=== PATIENT | female | born 1955 | race Caucasian/White ===

== ENCOUNTER 2016-09-15 23:56 | Inpatient (IN) | payer MEDICARE, OTHER ==
[~2016-09-15] VITALS: Ht 157.5 cm; Wt 114.8 kg
[~2016-09-15 23:56] MED LIST: ATOR40TA59 PO; BUDE0.5A IH; CELE200C PO; DILT180C29 PO; FENT1PAT15 TD; FLUO20CA8 PO; FURO20TA3 PO; HYDR-2666 PO; HYDR50TA6 PO; INSU100C4 SQ; INSU100I11 SQ; INSU100V13 SQ; IPRA3AMP IH; LEVO500T38 PO; LISI-338 PO; LISI10TA2 PO; METF10002 PO; METH500T7 PO; METO10TA81 PO; MONT10TA6 PO; MORP15TA3 PO; MORP30TA PO; PANT40TA5 PO; PARO30TA2 PO; PRED20TA PO; PREG75CA PO; PROAIR HFA8.5 GM IH; PROM25TA10 PO; SITA100T PO; TIOT18CA IH; TIZA4TAB PO; TRAM50TA PO; ZOLP10TA PO
[2016-09-16] VITALS (37 sets, daily range): BP systolic 110–221; BP diastolic 50–94
[2016-09-16 03:09] LABS: HCO3 ABG 28 mmol/L (21-28); PCO2 ABG 59 mmHg (35-46); PO2 ABG 77 mmHg (65-108); SAT O2 ABG 94 % (92-99)
[2016-09-16 03:44] LABS: FIO2 ABG 35; PH ABG 7.29 (7.35-7.45)
[2016-09-16 05:02] LABS: HEMATOCRIT 35.6 % (36.0-47.0); HEMOGLOBIN 10.9 g/dL (12.0-15.5); RED BLOOD COUNT 4.71 x10^6/uL (3.50-5.40); RED CELL DISTRIBUTION WIDTH 19.9 % (11.5-14.5); WHITE BLOOD COUNT 10.1 x10^3/uL (4.0-11.0)
[2016-09-16 06:05] LABS: CALCIUM 7.8 mg/dL (8.5-10.1); CREATININE 2.9 mg/dL (0.6-1.0); GFR 16.6; MAGNESIUM 1.4 mg/dL (1.8-2.4); PHOSPHORUS 8.2 mg/dL (2.6-4.7); POTASSIUM 5.6 mmol/L (3.5-5.1)
--- NOTE | 2016-09-16 08:24 | RAD ---
Portable chest, 09/16/2016: History: Shortness of breath Comparison is made to a study from 03/04/2016. The heart is mildly enlarged. The pulmonary vascularity is at the upper limits of normal. No pulmonary infiltrate is seen. There is no evidence of pleural fluid. IMPRESSION: 1. Mild cardiomegaly. 2. No acute abnormality is detected.
[2016-09-16 08:34] LABS: HCO3 ABG 32 mmol/L (21-28); PH ABG 7.29 (7.35-7.45); PO2 ABG 99 mmHg (65-108); SAT O2 ABG 97 % (92-99)
[2016-09-16] MEDS ORDERED: hydrALAZINE 20 MG/ML VIAL. IVP PRN (09:00)
[2016-09-16] MEDS ORDERED: ALBUTEROL SULFATE 2.5 MG/3 ML NEBU. NEB PRN (09:00)
[2016-09-16] MEDS ORDERED: ONDANSETRON PF 4 MG/2 ML VIAL. IV PRN (09:00)
--- NOTE | 2016-09-16 09:11 | PDOC1 ---
History and Physical Past Medical History Past Medical History PAST MEDICAL HISTORY: Diabetes mellitus, hypertension, COPD, chronic kidney disease - severity unclear, chronic pain. ALLERGIES: PENTAZOCINE. MEDICATIONS: Reviewed. FAMILY HISTORY: Noncontributory. SOCIAL HISTORY: Nmd-ggir-krf day tobacco use, supplemental oxygen dependence of 2-1/2 liters at rest. No alcohol use. Cardiovascular: HTN Pulmonary: COPD Renal/: Chronic renal insuff, Acute renal failure, Chronic renal failure Endocrine: Diabetes Past Surgical History Past Surgical History: No pertinent history Family History Family History: Family History Unknown Social History ALCOHOL: none Drugs: None Current Medications Current Medications Current Medications Medications (Trade) Dose Ordered Sig/Natalie Start Time Stop Time Status Last Admin Dose Admin Acetaminophen (Tylenol) 325 mg PRN Q6HRS PRN 09/16/16 09:00 Acetaminophen/ Hydrocodone Bitart (Lortab 5/325) 1 tab PRN Q6HRS PRN 09/16/16 09:00 Albuterol Sulfate (Ventolin Neb Soln) 2.5 mg PRN Q4HRS PRN 09/16/16 09:00 Hydralazine HCl (Apresoline) 10 mg PRN Q4HRS PRN 09/16/16 09:00 Ondansetron HCl (Zofran) 4 mg PRN Q8HRS PRN 09/16/16 09:00 Allergies Allergies Allergies Coded Allergies Type Severity Reaction Last Updated Verified pentazocine Allergy Intermediate 10/29/14 Yes I S O L A T I O N *CONTACT* Allergy Unknown 06/11/15 Yes ROS Review of System not able to obtain due to severity of her condition. Physical Exam Physical Exam GEN.: No apparent distress. Alert, confused. obese HEENT: Head is normocephalic, atraumatic NECK: Supple. no jvd LUNGS: Clear to auscultation. HEART: RRR, S1, S2 present. Peripheral pulses intact ABDOMEN: Soft, nontender. Positive bowel sounds. EXTREMITIES: Without any cyanosis. NEUROLOGIC: Normal speech, normal tone PSYCHIATRIC: Normal affect, normal mood. SKIN: No visible ulcerations Vitals Vitals Vital Signs Date Time Temp Pulse Resp B/P Pulse Ox O2 Delivery O2 Flow Rate FiO2 09/16/16 08:19 97 BiPAP/CPAP 09/16/16 06:08 81 24 140/68 09/16/16 04:00 99.2 99.2 Labs Labs Laboratory Tests Test 09/16/16 03:08 09/16/16 04:37 O2 Saturation 94% (92-99) Arterial Blood pH 7.29 (7.35-7.45) Arterial Blood pCO2 at Patient Temp 59mmHg (35-46) Arterial Blood pO2 at Patient Temp 77mmHg (65-108) Arterial Blood HCO3 28mmol/L (21-28) Arterial Blood Base Excess 0mmol/L (-3-3) FiO2 35 White Blood Count 10.1x10^3/uL (4.0-11.0) Red Blood Count 4.71x10^6/uL (3.50-5.40) Hemoglobin 10.9g/dL (12.0-15.5) Hematocrit 35.6% (36.0-47.0) Mean Corpuscular Volume 76fL (79-100) Mean Corpuscular Hemoglobin 23pg (25-35) Mean Corpuscular Hemoglobin Concent 31g/dL (31-37) Red Cell Distribution Width 19.9% (11.5-14.5) Platelet Count 322x10^3/uL (140-400) Sodium Level 138mmol/L (136-145) Potassium Level 5.6mmol/L (3.5-5.1) Chloride Level 98mmol/L (98-107) Carbon Dioxide Level 31mmol/L (21-32) Anion Gap 9 (6-14) Blood Urea Nitrogen 59mg/dL (7-20) Creatinine 2.9mg/dL (0.6-1.0) Estimated GFR (Cockcroft-Gault) 16.6 Glucose Level 129mg/dL (70-99) Calcium Level 7.8mg/dL (8.5-10.1) Phosphorus Level 8.2mg/dL (2.6-4.7) Magnesium Level 1.4mg/dL (1.8-2.4) Laboratory Tests Test 09/16/16 03:08 09/16/16 04:37 O2 Saturation 94% (92-99) Arterial Blood pH 7.29 (7.35-7.45) Arterial Blood pCO2 at Patient Temp 59mmHg (35-46) Arterial Blood pO2 at Patient Temp 77mmHg (65-108) Arterial Blood HCO3 28mmol/L (21-28) Arterial Blood Base Excess 0mmol/L (-3-3) FiO2 35 White Blood Count 10.1x10^3/uL (4.0-11.0) Red Blood Count 4.71x10^6/uL (3.50-5.40) Hemoglobin 10.9g/dL (12.0-15.5) Hematocrit 35.6% (36.0-47.0) Mean Corpuscular Volume 76fL (79-100) Mean Corpuscular Hemoglobin 23pg (25-35) Mean Corpuscular Hemoglobin Concent 31g/dL (31-37) Red Cell Distribution Width 19.9% (11.5-14.5) Platelet Count 322x10^3/uL (140-400) Sodium Level 138mmol/L (136-145) Potassium Level 5.6mmol/L (3.5-5.1) Chloride Level 98mmol/L (98-107) Carbon Dioxide Level 31mmol/L (21-32) Anion Gap 9 (6-14) Blood Urea Nitrogen 59mg/dL (7-20) Creatinine 2.9mg/dL (0.6-1.0) Estimated GFR (Cockcroft-Gault) 16.6 Glucose Level 129mg/dL (70-99) Calcium Level 7.8mg/dL (8.5-10.1) Phosphorus Level 8.2mg/dL (2.6-4.7) Magnesium Level 1.4mg/dL (1.8-2.4) VTE Prophylaxis Ordered VTE Prophylaxis Devices: Yes VTE Pharmacological Prophylaxi: Yes JACKIE CHAMBERLAIN MD Sep 16, 2016 09:11
[2016-09-16] MEDS ORDERED: DEXTROSE 50% 25 GM / 50ML DISP.SYRIN. IV PRN (09:15)
[2016-09-16 09:48] LABS: FIO2 ABG 40; PCO2 ABG 69 mmHg (35-46)
--- NOTE | 2016-09-16 10:00 | PDOC ---
Provider Note Provider Note dictated RAMBO RODRIGUEZ MD Sep 16, 2016 10:00
--- NOTE | 2016-09-16 10:03 | HP ---
ADMIT DATE: 09/16/2016 CHIEF COMPLAINT: Altered mental status. HISTORY OF PRESENT ILLNESS: A 60-year-old female patient with several comorbid conditions, brought to [place] ER by for altered mental status. Reportedly, the patient was in altered mental status for last couple of days. Exact period unknown (brought to [facility]). She was diagnosed with hypercapnic respiratory acidosis and hyperkalemia. She has been transferred to [facility] for further evaluation by Cardiology. I did review her laboratory findings from [place] and the patient had respiratory acidosis and mild hyperkalemia. Most of the history obtained from the chart and RN. The patient is currently on BiPAP and not able to provide good history; however, she is alert, responding to questions, but unable to talk due to her BiPAP. ROS and Physical exam: Please see my [facility] DATA: From [place], WBC is 13.9, hemoglobin is 11.8, MCV is 76, platelets 369. INR is 1.1. Urinalysis, ____ showed mild yeast positive. Rest of the UA appears negative. CMP: Glucose is 111, BUN is 57, creatinine is 3.6, total bilirubin is 0.4, AST 18, ALT is 19. Sodium is 132, potassium 6.9. CKMB 3.6 and GFR is 12.9, anion gap is 3.8, troponin 0.019. Lactic acid 0.7. Ammonia 19. pH is 7.24, pCO2 67. IMAGING STUDY: EKG personally reviewed, normal sinus rhythm, no acute ST-T wave changes seen. ASSESSMENT: 1. Altered mental status due to respiratory acidosis, hypercapnic/ hypoxic respiratory failure. 2. Morbid obesity. 3. Renal failure, unknown baseline creatinine. 4. Mild leukocytosis. 5. Hyperkalemia. 6. DM 7. HX CHF PLAN: 1. The patient is currently on BiPAP. Repeat ABG showed some improvement. Also, mentation is improving. 2. Pulmonology has been consulted. I will start her on IV Solu-Medrol and continue periodic nebulizations. 3. I will try to obtain her medications from pharmacy. 4. Nephrology has been consulted. 5. Sliding scale insulin. 6. IV Solu-Medrol t.i.d. 7. Limit narcotics. 8. CBC, CMP in a.m. PROGNOSIS: Guarded. JACKIE CHAMBERLAIN MD DR: CHON/brittney JOB#: [id number] / [id number] CAITIE
--- NOTE | 2016-09-16 11:00 | CONS ---
DATE OF CONSULTATION: ATTENDING PHYSICIAN: Dr. Krista Strong. REASON FOR CONSULTATION: Respiratory failure. HISTORY OF PRESENT ILLNESS: The patient is a 60-year-old female who is morbidly obese and probably has sleep apnea. The patient has been a smoker, 2 packs per day. She was initially seen at [facility] for increasing confusion and abnormal arterial blood gases. The patient was transferred to [facility] for further evaluation. Her arterial blood gases on arrival showed a pH of 7.29, pCO2 of 59, pO2 77 on 35% FiO2. She is awake, following commands. She is on chronic narcotics at home including hydrocodone, morphine and Duragesic patch. Her chest x-ray showed slightly prominent vascular markings and cardiomegaly. She was placed on BiPAP, but then she started having some vomitus and then I just gave the order to take her off the BiPAP. Consultation requested for further evaluation and management. PAST MEDICAL HISTORY: Significant for history of COPD, history of obesity, hypoventilation syndrome, diabetes, hypertension and chronic kidney disease. ALLERGIES: PENTAZOCINE. MEDICATIONS: Reviewed as listed in the MRAD and home medications were reviewed as well. SOCIAL HISTORY: Smoked, 2 packs per day. Chronically on oxygen 2.5 liters at rest. REVIEW OF SYSTEMS: Twelve-point system obtained. Pertinent positives discussed in my history of present illness, otherwise noncontributory. All systems that were negative were reviewed as well. PHYSICAL EXAMINATION: GENERAL: She is awake. She wants the BiPAP off. VITAL SIGNS: Blood pressure ____, pulse ox 97% on current BiPAP settings. HEENT: Sclerae nonicteric. NECK: Supple. LUNGS: Diminished breath sounds. CARDIOVASCULAR: Regular rate ABDOMEN: Soft, obese. EXTREMITIES: With no pitting edema. LABORATORY DATA: Reviewed. ABGs discussed in my history of present illness. BUN 59, creatinine 2.9, magnesium 1.4. White cell count 10.1, hemoglobin 10.9, platelets are 322. IMPRESSION: 1. Acute on chronic hypercapnic respiratory failure, most likely contributed by multiple narcotics and possible acute on chronic cor pulmonale. Cannot exclude bronchitis. She takes hydrocodone, morphine and Duragesic patch at home. 2. History of chronic obstructive pulmonary disease with mild exacerbation. 3. History of obesity, hypoventilation syndrome and possible obstructive sleep apnea. 4. History of chronic respiratory failure on 2.5 liters at home. RECOMMENDATIONS: 1. Since the patient has had some emesis, probably caused by narcotics, I will recommend discontinuing the BiPAP and place her on nasal cannula. We will keep the pO2 in the high 50s and repeat ABGs. Clinically, she does not show any signs of CO2 narcosis at present. 2. I would recommend not giving her any home narcotics. 3. Bronchodilators. 4. IV steroids with taper. 5. Follow renal function. 6. P.r.n. diuresis if renal function stabilizes. 7. Discussed with RN and RT. cct 39 min RAMBO RODRIGUEZ MD DR: GENARO/brittney JOB#: [id number] / [id number] CAITIE
[2016-09-16] MEDS: methylPREDNISolone SOD SUCC PF 40 MG/ML VIAL. IV SCH ×3 (11:09→21:36)
[2016-09-16] MEDS: INSULIN ASPART 300 UNITS/3 ML INSULN.PEN SQ SCH ×3 (11:57→21:42)
[2016-09-16] MEDS: IPRATRPIUM/ALBUTEROL 0.5/2.5MG 3 ML NEBU. NEB SCH ×3 (12:17→20:33)
[2016-09-16 12:25] LABS: HCO3 ABG 33 mmol/L (21-28); PH ABG 7.32 (7.35-7.45); PO2 ABG 72 mmHg (65-108); SAT O2 ABG 93 % (92-99)
[2016-09-16 12:27] LABS: FIO2 ABG 30; PCO2 ABG 66 mmHg (35-46)
[2016-09-16] MEDS: HYDROCODONE/APAP 5/325MG TABLET. PO PRN ×2 (16:15→21:59)
[2016-09-16] MEDS: LISINOPRIL 5 MG TABLET. PO SCH (19:53)
[2016-09-16] MEDS: TRAMADOL 50 MG TABLET. PO PRN (19:54)
[2016-09-16] MEDS: DILTIAZEM HCL 180 MG CAP.ER.24H PO SCH (19:55)
[2016-09-16] MEDS: hydrALAZINE 20 MG/ML VIAL. IVP PRN (21:25)
[2016-09-16] MEDS ORDERED: ALPRAZOLAM 0.5 MG TABLET PO ONE (21:30)
[2016-09-16] MEDS: NICARDIPINE HCL 50 MG in IV NORMAL SALINE 250ML 250 ML IV PRN (22:16)
[2016-09-17] VITALS (15 sets, daily range): BP systolic 121–179; BP diastolic 52–86
[2016-09-17] MEDS: TRAMADOL 50 MG TABLET. PO PRN ×3 (01:34→15:30)
[2016-09-17] MEDS: HYDROCODONE/APAP 5/325MG TABLET. PO PRN (03:58)
[2016-09-17] MEDS: hydrALAZINE 20 MG/ML VIAL. IVP PRN (05:39)
[2016-09-17] MEDS: ACETAMINOPHEN 325 MG TABLET. PO PRN ×2 (05:40→21:53)
[2016-09-17] MEDS: methylPREDNISolone SOD SUCC PF 40 MG/ML VIAL. IV SCH ×3 (05:42→21:19)
[2016-09-17] MEDS: NICARDIPINE HCL 50 MG in IV NORMAL SALINE 250ML 250 ML IV PRN (05:48)
[2016-09-17 06:19] LABS: BASO % 0 % (0-3); EOS % 0 % (0-3); HEMATOCRIT 38.4 % (36.0-47.0); HEMOGLOBIN 11.5 g/dL (12.0-15.5); LYMPH # 0.6 x10^3/uL (1.0-4.8); LYMPH % 5 % (24-48); MEAN CORPUSCULAR HEMOGLOBIN 23 pg (25-35); MEAN CORPUSCULAR HGB CONC 30 g/dL (31-37); MEAN CORPUSCULAR VOLUME 76 fL (79-100); MONO % 5 % (0-9); NEUT % 90 % (31-73); PLATELET COUNT 349 x10^3/uL (140-400); RED BLOOD COUNT 5.05 x10^6/uL (3.50-5.40); RED CELL DISTRIBUTION WIDTH 19.4 % (11.5-14.5); WHITE BLOOD COUNT 11.5 x10^3/uL (4.0-11.0)
[2016-09-17 06:32] LABS: CALCIUM 8.9 mg/dL (8.5-10.1); CREATININE 1.4 mg/dL (0.6-1.0); GFR 38.4; POTASSIUM 4.1 mmol/L (3.5-5.1)
[2016-09-17] MEDS: IPRATRPIUM/ALBUTEROL 0.5/2.5MG 3 ML NEBU. NEB SCH ×4 (07:28→19:33)
[2016-09-17] MEDS: DILTIAZEM HCL 180 MG CAP.ER.24H PO SCH (08:19)
[2016-09-17] MEDS: LISINOPRIL 5 MG TABLET. PO SCH (08:19)
[2016-09-17] MEDS: INSULIN ASPART 300 UNITS/3 ML INSULN.PEN SQ SCH ×4 (08:25→21:19)
[2016-09-17] MEDS ORDERED: MAGNESIUM SULFATE 2GM 50 ML IV PRN (10:00)
--- NOTE | 2016-09-17 10:05 | PDOC2 ---
CONSULT Date of Consult Date of Consult DATE: 09/17/16 TIME: 09:53 Reason for Consult Reason for Consult: Isabel and elytes ABN Referring Physician Referring Physician: Dr Strong Identification/Chief Complaint Chief Complaint SOB Problems: Source Source: Chart review, Patient History of Present Illness Reason for Visit: as dictated Past Medical History Cardiovascular: HTN Pulmonary: COPD Renal/: Chronic renal insuff, Acute renal failure, Chronic renal failure Endocrine: Diabetes Past Surgical History Past Surgical History: No pertinent history Family History Family History: Family History Unknown Social History ALCOHOL: none Drugs: None Lives: with Family Current Problem List Problem List Problems Medical Problems: (1) Hypercapnic respiratory failure Status: Acute Current Medications Current Medications Current Medications Acetaminophen (Tylenol) 325 mg PRN Q6HRS PRN PO MILD PAIN / TEMP Last administered on 09/17/16 05:40; Start 09/16/16 at 09:00 Acetaminophen/ Hydrocodone Bitart (Lortab 5/325) 1 tab PRN Q6HRS PRN PO MODERATE TO SEVERE PAIN Last administered on 09/17/16 03:58; Start 09/16/16 at 09:00 Hydralazine HCl (Apresoline) 10 mg PRN Q4HRS PRN IVP ELEVATED BP, SEE COMMENTS Last administered on 09/16/16 18:25; Start 09/16/16 at 09:00; Stop 09/16/16 at 21:11; Status DC Ondansetron HCl (Zofran) 4 mg PRN Q8HRS PRN IV NAUSEA/VOMITING Last administered on 09/16/16 09:56; Start 09/16/16 at 09:00 Albuterol Sulfate (Ventolin Neb Soln) 2.5 mg PRN Q4HRS PRN NEB SHORTNESS OF BREATH; Start 09/16/16 at 09:00 Insulin Aspart (Novolog) 0-9 UNITS TIDWMEALS SQ Last administered on 09/16/16 17:50; Start 09/16/16 at 12:00; Stop 09/16/16 at 21:33; Status DC Dextrose 12.5 gm PRN Q15MIN PRN IV SEE COMMENTS; Start 09/16/16 at 09:15 Methylprednisolone Sodium Succinate (Solu-Medrol 40mg Vial) 40 mg Q8HRS IV Last administered on 09/17/16 05:42; Start 09/16/16 at 10:00 Albuterol/ Ipratropium (Duoneb) 3 ml RTQID NEB Last administered on 09/17/16 07:28; Start 09/16/16 at 12:00 Diltiazem HCl (Cardizem 24hr Cd) 180 mg DAILY PO Last administered on 08:19; Start 09/16/16 at 20:00 Lisinopril (Prinivil) 5 mg DAILY PO Last administered on 09/17/16 08:19; Start 09/16/16 at 20:00 Tramadol HCl (Ultram) 50 mg PRN Q6HRS PRN PO PAIN Last administered on 08:20; Start 09/16/16 at 19:45 Hydralazine HCl (Apresoline) 10 mg PRN Q2HRS PRN IVP ELEVATED BP, SEE COMMENTS Last administered on 09/17/16 05:39; Start 09/16/16 at 21:15 Alprazolam 0.5 mg 0.5 mg 1X ONCE PO Last administered on 09/16/16 21:22; Start 09/16/16 at 21:30; Stop 09/16/16 at 21:31; Status DC Nicardipine HCl/ Sodium Chloride (Cardene/Iv Sodium Chloride 0.9% 250ml) 270 ml @ 0 mls/hr CONT PRN IV SEE I/O RECORD Last administered on 09/17/16 05:48; Start 09/16/16 at 21:15 Insulin Aspart (Novolog) 0-9 UNITS QIDACHS SQ Last administered on 09/17/16 08 :25; Start 09/16/16 at 21:45 Active Scripts Active Tramadol Hcl 50 Mg Tablet 50 Mg PO Q6H PRN Levaquin (Levofloxacin) 500 Mg Tablet 500 Tab PO DAILY 7 Days Lisinopril 5 Mg Tablet 5 Mg PO DAILY Morphine Sulfate Er (Morphine Sulfate) 15 Mg Tablet.er 15 Mg PO BID Hydrocodone-Apap 5-325 (Hydrocodone Bit/Acetaminophen) 1 Each Tablet 1 Tab PO PRN Q6HRS PRN FENTANYL 25mcg/hr (Fentanyl) 1 Each Patch.td72 1 Patch TD Q3DAYS Reported Paroxetine Hcl 30 Mg Tablet 1 Tab PO DAILY Budesonide 0.5 Mg/2 Ml Ampul.neb 0.5 Mg IH BID Duoneb 0.5-3(2.5) Mg/3 Ml (Albuterol/Ipratropium) 3 Ml Ampul.neb 3 Ml IH QID Humalog (Insulin Lispro) 100 Unit/1 Ml Insuln.pen Units SQ TIDAC >150-200 = 7 UNITS 201-250 = 10 UNITS 251-300 = 12 UNITS 301-350 = 15 UNITS >350 = 20 UNITS Levemir (Insulin Detemir) 100 Unit/1 Ml Vial 50 Unit SQ BID Lyrica (Pregabalin) 75 Mg Capsule 75 Mg PO TID Lisinopril 10 Mg Tablet 10 Mg PO DAILY Atorvastatin Calcium 40 Mg Tablet 40 Mg PO HS Spiriva (Tiotropium [place]) 18 Mcg Cap.w.dev 1 Cap IH DAILY Ambien (Zolpidem Tartrate) 10 Mg Tablet 10 Mg PO HS PRN Fluoxetine Hcl 20 Mg Capsule 60 Cap PO DAILY Pantoprazole Sodium 40 Mg Tablet.dr 40 Mg PO DAILY Furosemide 20 Mg Tablet 20 Mg PO DAILY Tizanidine Hcl 4 Mg Tablet 1 Tab PO TID Januvia (Sitagliptin Phosphate) 100 Mg Tablet 100 Mg PO DAILY Singulair Tablet (Montelukast Sodium) 10 Mg Tablet 10 Mg PO HS Promethazine Hcl 25 Mg Tablet 25 Mg PO Q6H PRN Proair Hfa Inhaler (Albuterol Sulfate) 8.5 Gm Hfa.aer.ad 2 Puff IH PRN Q4-6HRS Diltiazem 24HR Cd (Diltiazem Hcl) 180 Mg Cap.er.24h 180 Mg PO DAILY Allergies Allergies: Coded Allergies: pentazocine (Verified Allergy, Intermediate, 10/29/14) ROS Review of System GEN: no Fevers no Chills EYES: no new Visual Complaints ENT: no EN Drainage no Hearing deficiets CVS: no Orthopnea no CP RESP: + SOB + BURNETT GI: + Nausea + Vomiting : no Dysuria no Urgency HEME: no easy bruising no Palp Ly Nodes NEURO no Focal Weakness no Sz + FELIPE (uses NSAIDs) PSYCH: no Suicidal Ideation + Depression SKIN: no Rashes ENDO: no Polyuria or Polydipsia no Hot/Cold Intolerance MU SK: Occ Arthraigia occ Myalgia Physical Exam Physical Exam General Appearance: Awake Alert Oriented x 3 In no Distress; Morbidly obese WF Eyes: VIsion Unchanged Conjunctiva Normal EN: No EN Drainage Mucous Memb. drysih Neck: no JVD no JVP Supple no Thyromegaly; Short thick neck CVS: S1 S2 ? Murmur No Gallop No Rub tr Edema vs Pre-tibial fat - Distal HS Resp: no Rales no Rhonchi no Acc. Muscle use; barely audible BS due to obesity GI: BAS +ve NO Bruit Non Tender Non Distended; morbidly obese : no CVA tenderness; no Suprapubic Tenderness SKIN: no visible petechial Rashes Breast Exam deferred Mu.Sk: Adequate ROM no Muscle Atrophy Heme: Unable to palpate Obvious LAD no palp Splenomegaly NEURO: Good Strength and Tone Cranial Nerves II - XII grossly intact Psych: ? Depressed no Active hallucination Vital Signs Vital Signs Date Time Temp Pulse Resp B/P Pulse Ox O2 Delivery O2 Flow Rate FiO2 09/17/16 08:20 94 Nasal Cannula 3.0 09/17/16 08:19 120 142/60 09/17/16 07:00 30 09/17/16 03:59 98.2 98.2 Assessment & Plan ISABEL due to VOl Dpeltion? and NSAID use - VMN - Now better. Current FLuid and E-lyte status does not necessitate emergent need for Dialysis. Will re- evaluate for Dialysis in am. Watch off of IVf and NSAIDs ^K OA - suspect due to Resp Acidosis and NSAIDs - improved on todays labs Anemia: check Iron; - she appears Microcytic - defer to Primary team to update colonoscopy as needed HTN: resume Current home BP meds and review Sev ^ Phos - Unclear etio; will check CK, denies H/o Phosphate based Laxatives/ enemas HypoMag - rechekc today Discussed Plan of Care and prognosis etc. at length with family. Labs Labs Laboratory Tests Test 09/16/16 01:30 09/16/16 03:08 09/16/16 04:37 09/16/16 08:15 Nasal Screen MRSA (PCR) Negative (Negative) O2 Saturation 94% (92-99) 97% (92-99) Arterial Blood pH 7.29 (7.35-7.45) 7.29 (7.35-7.45) Arterial Blood pCO2 at Patient Temp 59mmHg (35-46) 69mmHg (35-46) Arterial Blood pO2 at Patient Temp 77mmHg (65-108) 99mmHg (65-108) Arterial Blood HCO3 28mmol/L (21-28) 32mmol/L (21-28) Arterial Blood Base Excess 0mmol/L (-3-3) 4mmol/L (-3-3) FiO2 35 40 White Blood Count 10.1x10^3/uL (4.0-11.0) Red Blood Count 4.71x10^6/uL (3.50-5.40) Hemoglobin 10.9g/dL (12.0-15.5) Hematocrit 35.6% (36.0-47.0) Mean Corpuscular Volume 76fL (79-100) Mean Corpuscular Hemoglobin 23pg (25-35) Mean Corpuscular Hemoglobin Concent 31g/dL (31-37) Red Cell Distribution Width 19.9% (11.5-14.5) Platelet Count 322x10^3/uL (140-400) Sodium Level 138mmol/L (136-145) Potassium Level 5.6mmol/L (3.5-5.1) Chloride Level 98mmol/L (98-107) Carbon Dioxide Level 31mmol/L (21-32) Anion Gap 9 (6-14) Blood Urea Nitrogen 59mg/dL (7-20) Creatinine 2.9mg/dL (0.6-1.0) Estimated GFR (Cockcroft-Gault) 16.6 Glucose Level 129mg/dL (70-99) Calcium Level 7.8mg/dL (8.5-10.1) Phosphorus Level 8.2mg/dL (2.6-4.7) Magnesium Level 1.4mg/dL (1.8-2.4) Test 09/16/16 11:50 09/16/16 12:00 09/16/16 15:55 09/16/16 17:44 Glucose (Fingerstick) 146mg/dL (70-99) 202mg/dL (70-99) O2 Saturation 93% (92-99) Arterial Blood pH 7.32 (7.35-7.45) Arterial Blood pCO2 at Patient Temp 66mmHg (35-46) Arterial Blood pO2 at Patient Temp 72mmHg (65-108) Arterial Blood HCO3 33mmol/L (21-28) Arterial Blood Base Excess 5mmol/L (-3-3) FiO2 30 Ammonia 13mcmol/L (11-34) Test 09/16/16 21:29 09/17/16 05:32 Glucose (Fingerstick) 246mg/dL (70-99) White Blood Count 11.5x10^3/uL (4.0-11.0) Red Blood Count 5.05x10^6/uL (3.50-5.40) Hemoglobin 11.5g/dL (12.0-15.5) Hematocrit 38.4% (36.0-47.0) Mean Corpuscular Volume 76fL (79-100) Mean Corpuscular Hemoglobin 23pg (25-35) Mean Corpuscular Hemoglobin Concent 30g/dL (31-37) Red Cell Distribution Width 19.4% (11.5-14.5) Platelet Count 349x10^3/uL (140-400) Neutrophils (%) (Auto) 90% (31-73) Lymphocytes (%) (Auto) 5% (24-48) Monocytes (%) (Auto) 5% (0-9) Eosinophils (%) (Auto) 0% (0-3) Basophils (%) (Auto) 0% (0-3) Neutrophils # (Auto) 10.4x10^3uL (1.8-7.7) Lymphocytes # (Auto) 0.6x10^3/uL (1.0-4.8) Monocytes # (Auto) 0.5x10^3/uL (0.0-1.1) Eosinophils # (Auto) 0.0x10^3/uL (0.0-0.7) Basophils # (Auto) 0.0x10^3/uL (0.0-0.2) Sodium Level 138mmol/L (136-145) Potassium Level 4.1mmol/L (3.5-5.1) Chloride Level 99mmol/L (98-107) Carbon Dioxide Level 35mmol/L (21-32) Anion Gap 4 (6-14) Blood Urea Nitrogen 43mg/dL (7-20) Creatinine 1.4mg/dL (0.6-1.0) Estimated GFR (Cockcroft-Gault) 38.4 Glucose Level 209mg/dL (70-99) Calcium Level 8.9mg/dL (8.5-10.1) Laboratory Tests Test 09/16/16 11:50 09/16/16 12:00 09/16/16 15:55 09/16/16 17:44 Glucose (Fingerstick) 146mg/dL (70-99) 202mg/dL (70-99) O2 Saturation 93% (92-99) Arterial Blood pH 7.32 (7.35-7.45) Arterial Blood pCO2 at Patient Temp 66mmHg (35-46) Arterial Blood pO2 at Patient Temp 72mmHg (65-108) Arterial Blood HCO3 33mmol/L (21-28) Arterial Blood Base Excess 5mmol/L (-3-3) FiO2 30 Ammonia 13mcmol/L (11-34) Test 09/16/16 21:29 09/17/16 05:32 Glucose (Fingerstick) 246mg/dL (70-99) White Blood Count 11.5x10^3/uL (4.0-11.0) Red Blood Count 5.05x10^6/uL (3.50-5.40) Hemoglobin 11.5g/dL (12.0-15.5) Hematocrit 38.4% (36.0-47.0) Mean Corpuscular Volume 76fL (79-100) Mean Corpuscular Hemoglobin 23pg (25-35) Mean Corpuscular Hemoglobin Concent 30g/dL (31-37) Red Cell Distribution Width 19.4% (11.5-14.5) Platelet Count 349x10^3/uL (140-400) Neutrophils (%) (Auto) 90% (31-73) Lymphocytes (%) (Auto) 5% (24-48) Monocytes (%) (Auto) 5% (0-9) Eosinophils (%) (Auto) 0% (0-3) Basophils (%) (Auto) 0% (0-3) Neutrophils # (Auto) 10.4x10^3uL (1.8-7.7) Lymphocytes # (Auto) 0.6x10^3/uL (1.0-4.8) Monocytes # (Auto) 0.5x10^3/uL (0.0-1.1) Eosinophils # (Auto) 0.0x10^3/uL (0.0-0.7) Basophils # (Auto) 0.0x10^3/uL (0.0-0.2) Sodium Level 138mmol/L (136-145) Potassium Level 4.1mmol/L (3.5-5.1) Chloride Level 99mmol/L (98-107) Carbon Dioxide Level 35mmol/L (21-32) Anion Gap 4 (6-14) Blood Urea Nitrogen 43mg/dL (7-20) Creatinine 1.4mg/dL (0.6-1.0) Estimated GFR (Cockcroft-Gault) 38.4 Glucose Level 209mg/dL (70-99) Calcium Level 8.9mg/dL (8.5-10.1) Images Images Portable chest, 09/16/2016: History: Shortness of breath Comparison is made to a study from 03/04/2016. The heart is mildly enlarged. The pulmonary vascularity is at the upper limits of normal. No pulmonary infiltrate is seen. There is no evidence of pleural fluid. IMPRESSION: 1. Mild cardiomegaly. 2. No acute abnormality is detected. ADEEL HERNANDEZ MD Sep 17, 2016 10:05
--- NOTE | 2016-09-17 10:30 | PDOC ---
PULMONARY PROGRESS NOTES Subjective feels better does not tolerate BIPAP Vitals Vital Signs Date Time Temp Pulse Resp B/P Pulse Ox O2 Delivery O2 Flow Rate FiO2 09/17/16 08:20 94 Nasal Cannula 3.0 09/17/16 08:19 120 142/60 09/17/16 07:00 30 09/17/16 03:59 98.2 98.2 General: Alert, No acute distress Lungs: Other (decrease bs) Cardiovascular: S1, S2 Abdomen: Soft, Non-tender Neuro Exam: Alert Extremities: No Edema Labs Laboratory Tests Test 09/16/16 01:30 09/16/16 03:08 09/16/16 04:37 09/16/16 08:15 Nasal Screen MRSA (PCR) Negative (Negative) O2 Saturation 94% (92-99) 97% (92-99) Arterial Blood pH 7.29 (7.35-7.45) 7.29 (7.35-7.45) Arterial Blood pCO2 at Patient Temp 59mmHg (35-46) 69mmHg (35-46) Arterial Blood pO2 at Patient Temp 77mmHg (65-108) 99mmHg (65-108) Arterial Blood HCO3 28mmol/L (21-28) 32mmol/L (21-28) Arterial Blood Base Excess 0mmol/L (-3-3) 4mmol/L (-3-3) FiO2 35 40 White Blood Count 10.1x10^3/uL (4.0-11.0) Red Blood Count 4.71x10^6/uL (3.50-5.40) Hemoglobin 10.9g/dL (12.0-15.5) Hematocrit 35.6% (36.0-47.0) Mean Corpuscular Volume 76fL (79-100) Mean Corpuscular Hemoglobin 23pg (25-35) Mean Corpuscular Hemoglobin Concent 31g/dL (31-37) Red Cell Distribution Width 19.9% (11.5-14.5) Platelet Count 322x10^3/uL (140-400) Sodium Level 138mmol/L (136-145) Potassium Level 5.6mmol/L (3.5-5.1) Chloride Level 98mmol/L (98-107) Carbon Dioxide Level 31mmol/L (21-32) Anion Gap 9 (6-14) Blood Urea Nitrogen 59mg/dL (7-20) Creatinine 2.9mg/dL (0.6-1.0) Estimated GFR (Cockcroft-Gault) 16.6 Glucose Level 129mg/dL (70-99) Calcium Level 7.8mg/dL (8.5-10.1) Phosphorus Level 8.2mg/dL (2.6-4.7) Magnesium Level 1.4mg/dL (1.8-2.4) Test 09/16/16 11:50 09/16/16 12:00 09/16/16 15:55 09/16/16 17:44 Glucose (Fingerstick) 146mg/dL (70-99) 202mg/dL (70-99) O2 Saturation 93% (92-99) Arterial Blood pH 7.32 (7.35-7.45) Arterial Blood pCO2 at Patient Temp 66mmHg (35-46) Arterial Blood pO2 at Patient Temp 72mmHg (65-108) Arterial Blood HCO3 33mmol/L (21-28) Arterial Blood Base Excess 5mmol/L (-3-3) FiO2 30 Ammonia 13mcmol/L (11-34) Test 09/16/16 21:29 09/17/16 05:32 Glucose (Fingerstick) 246mg/dL (70-99) White Blood Count 11.5x10^3/uL (4.0-11.0) Red Blood Count 5.05x10^6/uL (3.50-5.40) Hemoglobin 11.5g/dL (12.0-15.5) Hematocrit 38.4% (36.0-47.0) Mean Corpuscular Volume 76fL (79-100) Mean Corpuscular Hemoglobin 23pg (25-35) Mean Corpuscular Hemoglobin Concent 30g/dL (31-37) Red Cell Distribution Width 19.4% (11.5-14.5) Platelet Count 349x10^3/uL (140-400) Neutrophils (%) (Auto) 90% (31-73) Lymphocytes (%) (Auto) 5% (24-48) Monocytes (%) (Auto) 5% (0-9) Eosinophils (%) (Auto) 0% (0-3) Basophils (%) (Auto) 0% (0-3) Neutrophils # (Auto) 10.4x10^3uL (1.8-7.7) Lymphocytes # (Auto) 0.6x10^3/uL (1.0-4.8) Monocytes # (Auto) 0.5x10^3/uL (0.0-1.1) Eosinophils # (Auto) 0.0x10^3/uL (0.0-0.7) Basophils # (Auto) 0.0x10^3/uL (0.0-0.2) Sodium Level 138mmol/L (136-145) Potassium Level 4.1mmol/L (3.5-5.1) Chloride Level 99mmol/L (98-107) Carbon Dioxide Level 35mmol/L (21-32) Anion Gap 4 (6-14) Blood Urea Nitrogen 43mg/dL (7-20) Creatinine 1.4mg/dL (0.6-1.0) Estimated GFR (Cockcroft-Gault) 38.4 Glucose Level 209mg/dL (70-99) Calcium Level 8.9mg/dL (8.5-10.1) Laboratory Tests Test 09/16/16 11:50 09/16/16 12:00 09/16/16 15:55 09/16/16 17:44 Glucose (Fingerstick) 146mg/dL (70-99) 202mg/dL (70-99) O2 Saturation 93% (92-99) Arterial Blood pH 7.32 (7.35-7.45) Arterial Blood pCO2 at Patient Temp 66mmHg (35-46) Arterial Blood pO2 at Patient Temp 72mmHg (65-108) Arterial Blood HCO3 33mmol/L (21-28) Arterial Blood Base Excess 5mmol/L (-3-3) FiO2 30 Ammonia 13mcmol/L (11-34) Test 09/16/16 21:29 09/17/16 05:32 Glucose (Fingerstick) 246mg/dL (70-99) White Blood Count 11.5x10^3/uL (4.0-11.0) Red Blood Count 5.05x10^6/uL (3.50-5.40) Hemoglobin 11.5g/dL (12.0-15.5) Hematocrit 38.4% (36.0-47.0) Mean Corpuscular Volume 76fL (79-100) Mean Corpuscular Hemoglobin 23pg (25-35) Mean Corpuscular Hemoglobin Concent 30g/dL (31-37) Red Cell Distribution Width 19.4% (11.5-14.5) Platelet Count 349x10^3/uL (140-400) Neutrophils (%) (Auto) 90% (31-73) Lymphocytes (%) (Auto) 5% (24-48) Monocytes (%) (Auto) 5% (0-9) Eosinophils (%) (Auto) 0% (0-3) Basophils (%) (Auto) 0% (0-3) Neutrophils # (Auto) 10.4x10^3uL (1.8-7.7) Lymphocytes # (Auto) 0.6x10^3/uL (1.0-4.8) Monocytes # (Auto) 0.5x10^3/uL (0.0-1.1) Eosinophils # (Auto) 0.0x10^3/uL (0.0-0.7) Basophils # (Auto) 0.0x10^3/uL (0.0-0.2) Sodium Level 138mmol/L (136-145) Potassium Level 4.1mmol/L (3.5-5.1) Chloride Level 99mmol/L (98-107) Carbon Dioxide Level 35mmol/L (21-32) Anion Gap 4 (6-14) Blood Urea Nitrogen 43mg/dL (7-20) Creatinine 1.4mg/dL (0.6-1.0) Estimated GFR (Cockcroft-Gault) 38.4 Glucose Level 209mg/dL (70-99) Calcium Level 8.9mg/dL (8.5-10.1) Medications Active Scripts Medications Dose Route/Sig Days Date Category Dose Instructions Paroxetine Hcl 30 Mg Tablet 1 Tab PO DAILY 02/24/16 Reported Tramadol Hcl 50 Mg Tablet 50 Mg PO Q6H PRN 07/07/15 Rx Levaquin (Levofloxacin) 500 Mg Tablet 500 Tab PO DAILY 7 07/07/15 Rx Lisinopril 5 Mg Tablet 5 Mg PO DAILY 07/07/15 Rx Morphine Sulfate Er (Morphine Sulfate) 15 Mg Tablet.er 15 Mg PO BID 07/07/15 Rx Hydrocodone-Apap 5-325 (Hydrocodone Bit/Acetaminophen) 1 Each Tablet 1 Tab PO PRN Q6HRS PRN 07/07/15 Rx FENTANYL 25mcg/hr (Fentanyl) 1 Each Patch.td72 1 Patch TD Q3DAYS 07/07/15 Rx Budesonide 0.5 Mg/2 Ml Ampul.neb 0.5 Mg IH BID 07/03/15 Reported Duoneb 0.5-3(2.5) Mg/3 Ml (Albuterol/Ipratropium) 3 Ml Ampul.neb 3 Ml IH QID 07/03/15 Reported Humalog (Insulin Lispro) 100 Unit/1 Ml Insuln.pen Units SQ TIDAC 07/03/15 Reported >150-200 = 7 UNITS 201-250 = 10 UNITS 251-300 = 12 UNITS 301-350 = 15 UNITS >350 = 20 UNITS Levemir (Insulin Detemir) 100 Unit/1 Ml Vial 50 Unit SQ BID 10/28/14 Reported Lyrica (Pregabalin) 75 Mg Capsule 75 Mg PO TID 10/28/14 Reported Lisinopril 10 Mg Tablet 10 Mg PO DAILY 10/28/14 Reported Atorvastatin Calcium 40 Mg Tablet 40 Mg PO HS 10/28/14 Reported Spiriva (Tiotropium [place]) 18 Mcg Cap.w.dev 1 Cap IH DAILY 10/28/14 Reported Ambien (Zolpidem Tartrate) 10 Mg Tablet 10 Mg PO HS PRN 10/28/14 Reported Fluoxetine Hcl 20 Mg Capsule 60 Cap PO DAILY 10/28/14 Reported Pantoprazole Sodium 40 Mg Tablet.dr 40 Mg PO DAILY 10/28/14 Reported Furosemide 20 Mg Tablet 20 Mg PO DAILY 10/28/14 Reported Tizanidine Hcl 4 Mg Tablet 1 Tab PO TID 10/28/14 Reported Januvia (Sitagliptin Phosphate) 100 Mg Tablet 100 Mg PO DAILY 10/28/14 Reported Singulair Tablet (Montelukast Sodium) 10 Mg Tablet 10 Mg PO HS 10/28/14 Reported Promethazine Hcl 25 Mg Tablet 25 Mg PO Q6H PRN 10/28/14 Reported Proair Hfa Inhaler (Albuterol Sulfate) 8.5 Gm Hfa.aer.ad 2 Puff IH PRN Q4-6HRS 4/4/15 Reported Diltiazem 24HR Cd (Diltiazem Hcl) 180 Mg Cap.er.24h 180 Mg PO DAILY 10/28/14 Reported Impression . 1. Acute on chronic hypercapnic respiratory failure, most likely contributed by multiple narcotics and possible acute on chronic cor pulmonale. Cannot exclude bronchitis. She takes hydrocodone, morphine and Duragesic patch at home. 2. History of chronic obstructive pulmonary disease with mild exacerbation. 3. History of obesity, hypoventilation syndrome and possible obstructive sleep apnea. 4. History of chronic respiratory failure on 2.5 liters at home. Plan . 1. Nasal canula 2. I would recommend not giving her any home narcotics. 3. Bronchodilators. 4. IV steroids with taper. 5. Follow renal function. 6. P.r.n. diuresis if renal function stabilizes. 7. Discussed with RN and RT. RAMBO RODRIGUEZ MD Sep 17, 2016 10:30
[2016-09-17] MEDS ORDERED: METO10TA PO (10:50)
[2016-09-17] MEDS ORDERED: MAGN64TA6 PO (10:50)
[2016-09-17] MEDS ORDERED: PRED-220 PO (10:50)
[2016-09-17] MEDS ORDERED: INSU100V8 SQ (10:50)
[2016-09-17] MEDS ORDERED: FENT1PAT21 TP (10:50)
[2016-09-17] MEDS ORDERED: ACET500T68 PO (10:50)
[2016-09-17] MEDS ORDERED: BENZ100C2 PO (10:50)
[2016-09-17] MEDS ORDERED: FURO80TA3 PO (10:50)
[2016-09-17] MEDS ORDERED: POTA20TA82 PO (10:50)
[2016-09-17] MEDS ORDERED: INSU100V31 SQ (10:50)
[2016-09-17] MEDS ORDERED: CARV25TA2 PO (10:50)
[2016-09-17] MEDS ORDERED: CALC200T23 PO (10:50)
[2016-09-17] MEDS ORDERED: PRIM50TA PO (10:50)
[2016-09-17] MEDS ORDERED: VORT10TA PO (10:50)
[2016-09-17] MEDS ORDERED: LISI1TAB3 PO (10:50)
[2016-09-17 10:55] LABS: PLT ESTIMATE ADEQUATE (ADEQUATE)
[2016-09-17] MEDS ORDERED: NON FORMULARY ITEM (Albuterol Sulfate (Proair Hfa Inhaler) 2 PUFF) IH SCH (11:45)
--- NOTE | 2016-09-17 11:47 | PDOC ---
PROGRESS NOTES Chief Complaint Chief Complaint cc: ams A/P 1. Encephalopathy, respiratory acidosis, hypercapnic/ hypoxic respiratory failure. improving. 2. Accelerated HTN 3. Renal failure, unknown baseline creatinine. 4. Mild leukocytosis. 5. Hyperkalemia. labs pending 6. DM 7. HX CHF Plan seen in icu, on nicardipine gtt, BP not controlled, goal SBP < 140 PRN BIPAP Home medications reviewed avoid narcotics BMP pending monitor renal functions SSI with Levemir iv solumedrol PRN nebulizations follow pulmonology History of Present Illness History of Present Illness Doing better no fever confusion better Vitals Vitals Vital Signs Date Time Temp Pulse Resp B/P Pulse Ox O2 Delivery O2 Flow Rate FiO2 09/17/16 08:20 94 Nasal Cannula 3.0 09/17/16 08:19 120 142/60 09/17/16 07:00 30 09/17/16 03:59 98.2 98.2 Physical Exam General: Alert, Oriented X3 Heart: Normal S1, Normal S2 Lungs: Clear, Other (decrease bs) Abdomen: Normal bowel sounds Extremities: No clubbing Labs LABS Laboratory Tests Test 09/16/16 11:50 09/16/16 12:00 09/16/16 15:55 09/16/16 17:44 Glucose (Fingerstick) 146mg/dL (70-99) 202mg/dL (70-99) O2 Saturation 93% (92-99) Arterial Blood pH 7.32 (7.35-7.45) Arterial Blood pCO2 at Patient Temp 66mmHg (35-46) Arterial Blood pO2 at Patient Temp 72mmHg (65-108) Arterial Blood HCO3 33mmol/L (21-28) Arterial Blood Base Excess 5mmol/L (-3-3) FiO2 30 Ammonia 13mcmol/L (11-34) Test 09/16/16 21:29 09/17/16 05:32 Glucose (Fingerstick) 246mg/dL (70-99) White Blood Count 11.5x10^3/uL (4.0-11.0) Red Blood Count 5.05x10^6/uL (3.50-5.40) Hemoglobin 11.5g/dL (12.0-15.5) Hematocrit 38.4% (36.0-47.0) Mean Corpuscular Volume 76fL (79-100) Mean Corpuscular Hemoglobin 23pg (25-35) Mean Corpuscular Hemoglobin Concent 30g/dL (31-37) Red Cell Distribution Width 19.4% (11.5-14.5) Platelet Count 349x10^3/uL (140-400) Neutrophils (%) (Auto) 90% (31-73) Lymphocytes (%) (Auto) 5% (24-48) Monocytes (%) (Auto) 5% (0-9) Eosinophils (%) (Auto) 0% (0-3) Basophils (%) (Auto) 0% (0-3) Neutrophils # (Auto) 10.4x10^3uL (1.8-7.7) Lymphocytes # (Auto) 0.6x10^3/uL (1.0-4.8) Monocytes # (Auto) 0.5x10^3/uL (0.0-1.1) Eosinophils # (Auto) 0.0x10^3/uL (0.0-0.7) Basophils # (Auto) 0.0x10^3/uL (0.0-0.2) Segmented Neutrophils % 94% (35-66) Lymphocytes % 3% (24-48) Monocytes % 3% (0-10) Platelet Estimate Adequate (ADEQUATE) Sodium Level 138mmol/L (136-145) Potassium Level 4.1mmol/L (3.5-5.1) Chloride Level 99mmol/L (98-107) Carbon Dioxide Level 35mmol/L (21-32) Anion Gap 4 (6-14) Blood Urea Nitrogen 43mg/dL (7-20) Creatinine 1.4mg/dL (0.6-1.0) Estimated GFR (Cockcroft-Gault) 38.4 Glucose Level 209mg/dL (70-99) Calcium Level 8.9mg/dL (8.5-10.1) Assessment and Plan Assessmemt and Plan Problems Medical Problems: (1) Hypercapnic respiratory failure Status: Acute Problems: Comment Review of Relevant I have reviewed the following items chavez (where applicable) has been applied. Labs Laboratory Tests Test 09/16/16 01:30 09/16/16 03:08 09/16/16 04:37 09/16/16 08:15 Nasal Screen MRSA (PCR) Negative (Negative) O2 Saturation 94% (92-99) 97% (92-99) Arterial Blood pH 7.29 (7.35-7.45) 7.29 (7.35-7.45) Arterial Blood pCO2 at Patient Temp 59mmHg (35-46) 69mmHg (35-46) Arterial Blood pO2 at Patient Temp 77mmHg (65-108) 99mmHg (65-108) Arterial Blood HCO3 28mmol/L (21-28) 32mmol/L (21-28) Arterial Blood Base Excess 0mmol/L (-3-3) 4mmol/L (-3-3) FiO2 35 40 White Blood Count 10.1x10^3/uL (4.0-11.0) Red Blood Count 4.71x10^6/uL (3.50-5.40) Hemoglobin 10.9g/dL (12.0-15.5) Hematocrit 35.6% (36.0-47.0) Mean Corpuscular Volume 76fL (79-100) Mean Corpuscular Hemoglobin 23pg (25-35) Mean Corpuscular Hemoglobin Concent 31g/dL (31-37) Red Cell Distribution Width 19.9% (11.5-14.5) Platelet Count 322x10^3/uL (140-400) Sodium Level 138mmol/L (136-145) Potassium Level 5.6mmol/L (3.5-5.1) Chloride Level 98mmol/L (98-107) Carbon Dioxide Level 31mmol/L (21-32) Anion Gap 9 (6-14) Blood Urea Nitrogen 59mg/dL (7-20) Creatinine 2.9mg/dL (0.6-1.0) Estimated GFR (Cockcroft-Gault) 16.6 Glucose Level 129mg/dL (70-99) Calcium Level 7.8mg/dL (8.5-10.1) Phosphorus Level 8.2mg/dL (2.6-4.7) Magnesium Level 1.4mg/dL (1.8-2.4) Test 09/16/16 11:50 09/16/16 12:00 09/16/16 15:55 09/16/16 17:44 Glucose (Fingerstick) 146mg/dL (70-99) 202mg/dL (70-99) O2 Saturation 93% (92-99) Arterial Blood pH 7.32 (7.35-7.45) Arterial Blood pCO2 at Patient Temp 66mmHg (35-46) Arterial Blood pO2 at Patient Temp 72mmHg (65-108) Arterial Blood HCO3 33mmol/L (21-28) Arterial Blood Base Excess 5mmol/L (-3-3) FiO2 30 Ammonia 13mcmol/L (11-34) Test 09/16/16 21:29 09/17/16 05:32 Glucose (Fingerstick) 246mg/dL (70-99) White Blood Count 11.5x10^3/uL (4.0-11.0) Red Blood Count 5.05x10^6/uL (3.50-5.40) Hemoglobin 11.5g/dL (12.0-15.5) Hematocrit 38.4% (36.0-47.0) Mean Corpuscular Volume 76fL (79-100) Mean Corpuscular Hemoglobin 23pg (25-35) Mean Corpuscular Hemoglobin Concent 30g/dL (31-37) Red Cell Distribution Width 19.4% (11.5-14.5) Platelet Count 349x10^3/uL (140-400) Neutrophils (%) (Auto) 90% (31-73) Lymphocytes (%) (Auto) 5% (24-48) Monocytes (%) (Auto) 5% (0-9) Eosinophils (%) (Auto) 0% (0-3) Basophils (%) (Auto) 0% (0-3) Neutrophils # (Auto) 10.4x10^3uL (1.8-7.7) Lymphocytes # (Auto) 0.6x10^3/uL (1.0-4.8) Monocytes # (Auto) 0.5x10^3/uL (0.0-1.1) Eosinophils # (Auto) 0.0x10^3/uL (0.0-0.7) Basophils # (Auto) 0.0x10^3/uL (0.0-0.2) Segmented Neutrophils % 94% (35-66) Lymphocytes % 3% (24-48) Monocytes % 3% (0-10) Platelet Estimate Adequate (ADEQUATE) Sodium Level 138mmol/L (136-145) Potassium Level 4.1mmol/L (3.5-5.1) Chloride Level 99mmol/L (98-107) Carbon Dioxide Level 35mmol/L (21-32) Anion Gap 4 (6-14) Blood Urea Nitrogen 43mg/dL (7-20) Creatinine 1.4mg/dL (0.6-1.0) Estimated GFR (Cockcroft-Gault) 38.4 Glucose Level 209mg/dL (70-99) Calcium Level 8.9mg/dL (8.5-10.1) Laboratory Tests Test 09/16/16 11:50 09/16/16 12:00 09/16/16 15:55 09/16/16 17:44 Glucose (Fingerstick) 146mg/dL (70-99) 202mg/dL (70-99) O2 Saturation 93% (92-99) Arterial Blood pH 7.32 (7.35-7.45) Arterial Blood pCO2 at Patient Temp 66mmHg (35-46) Arterial Blood pO2 at Patient Temp 72mmHg (65-108) Arterial Blood HCO3 33mmol/L (21-28) Arterial Blood Base Excess 5mmol/L (-3-3) FiO2 30 Ammonia 13mcmol/L (11-34) Test 09/16/16 21:29 09/17/16 05:32 Glucose (Fingerstick) 246mg/dL (70-99) White Blood Count 11.5x10^3/uL (4.0-11.0) Red Blood Count 5.05x10^6/uL (3.50-5.40) Hemoglobin 11.5g/dL (12.0-15.5) Hematocrit 38.4% (36.0-47.0) Mean Corpuscular Volume 76fL (79-100) Mean Corpuscular Hemoglobin 23pg (25-35) Mean Corpuscular Hemoglobin Concent 30g/dL (31-37) Red Cell Distribution Width 19.4% (11.5-14.5) Platelet Count 349x10^3/uL (140-400) Neutrophils (%) (Auto) 90% (31-73) Lymphocytes (%) (Auto) 5% (24-48) Monocytes (%) (Auto) 5% (0-9) Eosinophils (%) (Auto) 0% (0-3) Basophils (%) (Auto) 0% (0-3) Neutrophils # (Auto) 10.4x10^3uL (1.8-7.7) Lymphocytes # (Auto) 0.6x10^3/uL (1.0-4.8) Monocytes # (Auto) 0.5x10^3/uL (0.0-1.1) Eosinophils # (Auto) 0.0x10^3/uL (0.0-0.7) Basophils # (Auto) 0.0x10^3/uL (0.0-0.2) Segmented Neutrophils % 94% (35-66) Lymphocytes % 3% (24-48) Monocytes % 3% (0-10) Platelet Estimate Adequate (ADEQUATE) Sodium Level 138mmol/L (136-145) Potassium Level 4.1mmol/L (3.5-5.1) Chloride Level 99mmol/L (98-107) Carbon Dioxide Level 35mmol/L (21-32) Anion Gap 4 (6-14) Blood Urea Nitrogen 43mg/dL (7-20) Creatinine 1.4mg/dL (0.6-1.0) Estimated GFR (Cockcroft-Gault) 38.4 Glucose Level 209mg/dL (70-99) Calcium Level 8.9mg/dL (8.5-10.1) Medications Current Medications Acetaminophen (Tylenol) 325 mg PRN Q6HRS PRN PO MILD PAIN / TEMP Last administered on 09/17/16 05:40; Start 09/16/16 at 09:00 Acetaminophen/ Hydrocodone Bitart (Lortab 5/325) 1 tab PRN Q6HRS PRN PO MODERATE TO SEVERE PAIN Last administered on 09/17/16 03:58; Start 09/16/16 at 09:00 Hydralazine HCl (Apresoline) 10 mg PRN Q4HRS PRN IVP ELEVATED BP, SEE COMMENTS Last administered on 09/16/16 18:25; Start 09/16/16 at 09:00; Stop 09/16/16 at 21:11; Status DC Ondansetron HCl (Zofran) 4 mg PRN Q8HRS PRN IV NAUSEA/VOMITING Last administered on 09/16/16 09:56; Start 09/16/16 at 09:00 Albuterol Sulfate (Ventolin Neb Soln) 2.5 mg PRN Q4HRS PRN NEB SHORTNESS OF BREATH; Start 09/16/16 at 09:00 Insulin Aspart (Novolog) 0-9 UNITS TIDWMEALS SQ Last administered on 09/16/16 17:50; Start 09/16/16 at 12:00; Stop 09/16/16 at 21:33; Status DC Dextrose 12.5 gm PRN Q15MIN PRN IV SEE COMMENTS; Start 09/16/16 at 09:15 Methylprednisolone Sodium Succinate (Solu-Medrol 40mg Vial) 40 mg Q8HRS IV Last administered on 09/17/16 05:42; Start 09/16/16 at 10:00 Albuterol/ Ipratropium (Duoneb) 3 ml RTQID NEB Last administered on 09/17/16 07:28; Start 09/16/16 at 12:00 Diltiazem HCl (Cardizem 24hr Cd) 180 mg DAILY PO Last administered on 08:19; Start 09/16/16 at 20:00 Lisinopril (Prinivil) 5 mg DAILY PO Last administered on 09/17/16 08:19; Start 09/16/16 at 20:00 Tramadol HCl (Ultram) 50 mg PRN Q6HRS PRN PO PAIN Last administered on 08:20; Start 09/16/16 at 19:45 Hydralazine HCl (Apresoline) 10 mg PRN Q2HRS PRN IVP ELEVATED BP, SEE COMMENTS Last administered on 09/17/16 05:39; Start 09/16/16 at 21:15 Alprazolam 0.5 mg 0.5 mg 1X ONCE PO Last administered on 09/16/16 21:22; Start 09/16/16 at 21:30; Stop 09/16/16 at 21:31; Status DC Nicardipine HCl/ Sodium Chloride (Cardene/Iv Sodium Chloride 0.9% 250ml) 270 ml @ 0 mls/hr CONT PRN IV SEE I/O RECORD Last administered on 09/17/16 05:48; Start 09/16/16 at 21:15 Insulin Aspart 0-9 UNITS QIDACHS SQ Last administered on 09/17/16t 08:25; Start 09/16/16 at 21:45 Magnesium Sulfate/ Dextrose (Magnesium Sulfate PREMIX 2GM) 50 ml @ 25 mls/hr PRN DAILY PRN IV for Mag < 1.7 on am labs; Start 09/17/16 at 10:00 Active Scripts Active Morphine Sulfate Er (Morphine Sulfate) 15 Mg Tablet.er 15 Mg PO BID Reported Calcium Carbonate 200 Mg Tab.chew 200 Mg PO Mag64 (Magnesium Chloride) 64 Mg Tablet.er 64 Mg PO DAILY Trintellix (Vortioxetine) 10 Mg Tablet 10 Mg PO DAILY Primidone 50 Mg Tablet 50 Mg PO BID Prednisone 10 Mg Tablet 10 Mg PO DAILY Potassium Chloride 20 Meq Tablet.er 20 Meq PO TID Metoclopramide Hcl 10 Mg Tablet 10 Mg PO QIDACHS Lantus (Insulin Glargine,Hum.rec.anlog) 100 Unit/1 Ml Vial 60 Unit SQ DAILY Novolog (Insulin Aspart) 100 Unit/1 Ml Vial 100 Unit SQ Lisinopril-Hctz 10-12.5 Mg Tab (Lisinopril/Hydrochlorothiazide) 1 Each Tablet 1 Tab PO DAILY Furosemide 80 Mg Tablet 1 Tab PO DAILY FENTANYL 100mcg/hr (Fentanyl) 1 Each Patch.td72 0.5 Patch TP Q3DAYS Carvedilol 25 Mg Tablet 1 Tab PO TID Acetaminophen 500 Mg Tablet 1 Tab PO Q6HRS Benzonatate 100 Mg Capsule 1 Cap PO TID PRN Atorvastatin Calcium 40 Mg Tablet 40 Mg PO HS Spiriva (Tiotropium [place]) 18 Mcg Cap.w.dev 1 Cap IH DAILY Ambien (Zolpidem Tartrate) 10 Mg Tablet 10 Mg PO HS PRN Pantoprazole Sodium 40 Mg Tablet.dr 40 Mg PO DAILY Januvia (Sitagliptin Phosphate) 100 Mg Tablet 100 Mg PO DAILY Singulair Tablet (Montelukast Sodium) 10 Mg Tablet 10 Mg PO HS Promethazine Hcl 25 Mg Tablet 25 Mg PO Q6H PRN Proair Hfa Inhaler (Albuterol Sulfate) 8.5 Gm Hfa.aer.ad 2 Puff IH PRN Q4-6HRS Diltiazem 24HR Cd (Diltiazem Hcl) 180 Mg Cap.er.24h 180 Mg PO DAILY Vitals/I & O Vital Sign - Last 24 Hours 09/16/16 09/16/16 09/16/16 09/16/16 11:57 12:00 12:00 13:00 Pulse 84 88 Resp 20 20 B/P 117/52 Pulse Ox 93 92 92 O2 Delivery Nasal Cannula Bi-pap Nasal Cannula Nasal Cannula O2 Flow Rate 2.5 2.5 2.5 1.5 09/16/16 09/16/16 09/16/16 09/16/16 14:00 15:00 16:00 16:00 Temp 98.4 98.5 98.4 98.5 Pulse 92 Resp 22 B/P 144/55 133/68 166/77 Pulse Ox 90 O2 Delivery Nasal Cannula Nasal Cannula Bi-pap Nasal Cannula O2 Flow Rate 1.5 2.5 09/16/16 09/16/16 09/16/16 09/16/16 16:00 16:15 16:19 17:00 Resp 20 B/P 188/88 Pulse Ox 94 92 O2 Delivery Nasal Cannula Nasal Cannula Nasal Cannula O2 Flow Rate 1.5 1.5 2.5 09/16/16 09/16/16 09/16/16 09/16/16 18:00 18:25 19:00 19:15 Temp 98.3 98.3 Pulse 98 99 106 108 Resp 24 B/P 196/89 187/68 189/79 198/90 Pulse Ox 93 94 O2 Delivery Nasal Cannula Nasal Cannula Nasal Cannula O2 Flow Rate 1.5 1.5 1.5 09/16/16 09/16/16 09/16/16 09/16/16 19:30 19:45 19:53 19:54 Pulse 110 112 102 Resp 22 20 20 B/P 200/89 203/73 203/73 Pulse Ox 92 93 92 O2 Delivery Nasal Cannula Nasal Cannula Nasal Cannula O2 Flow Rate 1.5 1.5 1.5 09/16/16 09/16/16 09/16/16 09/16/16 19:55 20:00 20:00 20:00 Temp 98.2 98.2 Pulse 102 110 Resp 20 B/P 203/73 200/82 Pulse Ox 93 O2 Delivery Nasal Cannula Nasal Cannula O2 Flow Rate 1.5 1.5 1.5 09/16/16 09/16/16 09/16/16 09/16/16 20:30 20:33 21:00 21:25 Pulse 105 108 107 Resp B/P 210/89 197/87 203/85 Pulse Ox 94 92 94 O2 Delivery Nasal Cannula Nasal Cannula Nasal Cannula O2 Flow Rate 1.5 2.5 1.5 09/16/16 09/16/16 09/16/16 09/16/16 21:30 21:59 22:00 22:15 Pulse 107 118 115 Resp B/P 203/85 221/91 166/88 Pulse Ox 94 93 92 93 O2 Delivery Nasal Cannula Nasal Cannula Nasal Cannula Nasal Cannula O2 Flow Rate 1.5 1.5 1.5 1.5 09/16/16 09/16/16 09/16/16 09/16/16 22:30 22:45 23:00 23:15 Pulse 110 108 105 107 Resp B/P 171/56 169/70 156/75 172/71 Pulse Ox 93 93 92 92 O2 Delivery Nasal Cannula Nasal Cannula Nasal Cannula O2 Flow Rate 1.5 1.5 1.5 1.5 09/16/16 09/16/16 09/16/16 09/16/16 23:30 23:45 23:59 23:59 Temp 98.2 98.2 Pulse 108 102 100 Resp B/P 178/67 137/55 131/54 Pulse Ox 92 92 91 O2 Delivery Nasal Cannula Nasal Cannula Nasal Cannula Nasal Cannula O2 Flow Rate 1.5 1.5 1.5 1.5 09/16/1609/17/09/17/09/17/16 23:59 00:30 01:00 01:30 Pulse 106 108 98 Resp B/P 151/61 144/55 121/61 Pulse Ox 93 91 91 O2 Delivery Nasal Cannula Nasal Cannula Nasal Cannula O2 Flow Rate 1.5 1.5 1.5 1.5 09/17/16 09/17/16 09/17/16 09/17/16 01:34 01:45 02:00 02:30 Pulse 98 95 Resp B/P 129/59 133/52 Pulse Ox 91 94 91 91 O2 Delivery Nasal Cannula Nasal Cannula Nasal Cannula Nasal Cannula O2 Flow Rate 1.5 1.5 1.5 1.5 09/17/16 09/17/16 09/17/16 09/17/16 02:30 03:58 03:59 04:00 Temp 98.2 98.2 Pulse 98 110 Resp 28 26 26 B/P 139/67 153/69 Pulse Ox 91 92 92 O2 Delivery Nasal Cannula Nasal Cannula Nasal Cannula Nasal Cannula O2 Flow Rate 1.5 1.5 1.5 1.5 09/17/16 09/17/16 09/17/16 09/17/16 04:00 04:55 05:00 05:39 Pulse 94 100 Resp 32 32 B/P 155/71 168/75 Pulse Ox 92 92 O2 Delivery Nasal Cannula Nasal Cannula O2 Flow Rate 1.5 1.5 1.5 09/17/16 09/17/16 09/17/16 09/17/16 06:00 07:00 07:30 08:19 Pulse 110 108 120 Resp 36 30 B/P 179/76 170/75 142/60 Pulse Ox 94 92 94 O2 Delivery Nasal Cannula Nasal Cannula Nasal Cannula O2 Flow Rate 1.5 1.5 3.0 09/17/16 09/17/16 08:19 08:20 Pulse 120 B/P 142/60 Pulse Ox 94 O2 Delivery Nasal Cannula O2 Flow Rate 3.0 Intake and Output 09/16/16 09/16/16 09/17/16 15:00 23:00 07:00 Intake Total 340 ml 460 ml 843 ml Output Total 1720 ml 1800 ml 1800 ml Balance -1380 ml -1340 ml -957 ml JACKIE CHAMBERLAIN MD Sep 17, 2016 11:47
[2016-09-17] MEDS ORDERED: PROMETHAZINE 12.5 MG TABLET. PO PRN (12:15)
[2016-09-17] MEDS: PREDNISONE 10 MG TABLET PO SCH (12:48)
[2016-09-17] MEDS: FUROSEMIDE 80 MG TABLET PO SCH (12:49)
[2016-09-17] MEDS: MORPHINE ER 15 MG TABLET.ER PO SCH ×2 (12:49→21:16)
[2016-09-17] MEDS: CARVEDILOL 12.5 MG TABLET PO SCH ×2 (12:49→17:42)
[2016-09-17] MEDS: HYDROCHLOROTHIAZIDE 12.5 MG CAPSULE. PO SCH (12:49)
[2016-09-17] MEDS: PANTOPRAZOLE 40 MG TABLET. PO SCH (12:49)
[2016-09-17] MEDS: PRIMIDONE 50 MG TABLET PO SCH ×2 (12:50→21:15)
[2016-09-17] MEDS: MAGNESIUM CHLORIDE ER 64 MG TABLET.ER PO SCH ×2 (12:50)
[2016-09-17] MEDS ORDERED: LISINOPRIL 10 MG TABLET PO SCH (13:00)
--- NOTE | 2016-09-17 13:57 | RAD ---
Renal ultrasound, 09/17/2016: History: Acute renal insufficiency The right kidney measures 12.0 cm in length while the left kidney measures 13.5 cm. There is no evidence of hydronephrosis or renal mass. The renal parenchymal echogenicity is within normal limits. The bladder is collapsed and not adequately delineated due to the presence of a Arizmendi catheter. IMPRESSION: No significant renal abnormality is detected.
[2016-09-17] MEDS ORDERED: INSU300I SQ (15:08)
[2016-09-17] MEDS ORDERED: FENTANYL 50MCG/HR PATCH. TD SCH (17:00)
[2016-09-17] MEDS ORDERED: INSULIN DETEMIR 300 UNITS/3 ML INSULN.PEN. SQ SCH (21:00)
[2016-09-17] MEDS: MONTELUKAST SODIUM 10 MG TABLET. PO SCH (21:15)
[2016-09-17] MEDS: ZOLPIDEM 5 MG TABLET. PO PRN (21:15)
--- NOTE | 2016-09-18 02:26 | CONS ---
DATE OF CONSULTATION: PRIMARY PHYSICIAN: Dr. Guzman. REASON FOR CONSULTATION: Acute renal failure. HISTORY OF PRESENT ILLNESS: The patient is a 60-year-old morbidly obese female. She was brought into [facility] by her for altered mental status. She was noted to be on numerous opioids. She was noted to be in hypercapnic respiratory acidosis and hyperkalemia. She was transferred to [facility] for further evaluation by Cardiology and Pulmonary. On arrival here, her ABGs were 7.29/59/77 and 28 on an FiO2 of 35%. She was initially placed on BiPAP; however, developed significant nausea, vomiting and BiPAP has been discontinued. At presentation, she was noted to be hyperkalemic and in acute renal failure. Potassium of 5.6, BUN of 59, creatinine of 2.9, phosphorus of 8.2, calcium of 7.8, magnesium of 1.4. In the setting we were asked to see her this morning for further evaluation of these problems. Repeat labs show potassium of 4.1, bicarbonate of 35, BUN of 43, creatinine 1.4. Magnesium and phosphorus are pending this morning. Calcium is corrected to 8.9. Ammonia levels are normal. She is not aware of known renal insufficiency. She does use NSAIDs at home usually for headaches. She was on Lasix also. There is some history of chronic renal insufficiency, but the patient denies that at this time. She does have a previous history of some scarring on one her kidneys on a CAT scan. No renal imaging studies are noted and hence this will be ordered. ADEEL HERNANDEZ MD DR: MADDI/brittney JOB#: [id number] / [id number]
[2016-09-18 03:32] VITALS: BP 186/96
[2016-09-18] MEDS: hydrALAZINE 20 MG/ML VIAL. IVP PRN (04:32)
[2016-09-18] MEDS: ACETAMINOPHEN 325 MG TABLET. PO PRN ×2 (04:44→12:48)
[2016-09-18 04:56] LABS: BASO % 0 % (0-3); EOS % 0 % (0-3); HEMATOCRIT 36.6 % (36.0-47.0); HEMOGLOBIN 11.4 g/dL (12.0-15.5); LYMPH # 0.4 x10^3/uL (1.0-4.8); LYMPH % 4 % (24-48); MEAN CORPUSCULAR HEMOGLOBIN 23 pg (25-35); MEAN CORPUSCULAR HGB CONC 31 g/dL (31-37); MEAN CORPUSCULAR VOLUME 75 fL (79-100); MONO % 3 % (0-9); NEUT % 93 % (31-73); PLATELET COUNT 328 x10^3/uL (140-400); RED CELL DISTRIBUTION WIDTH 19.8 % (11.5-14.5); WHITE BLOOD COUNT 9.8 x10^3/uL (4.0-11.0)
[2016-09-18 04:57] LABS: ALBUMIN 2.8 g/dL (3.4-5.0); CALCIUM 9.3 mg/dL (8.5-10.1); CREATININE 1.1 mg/dL (0.6-1.0); GFR 50.7; POTASSIUM 4.4 mmol/L (3.5-5.1)
[2016-09-18 04:58] LABS: MAGNESIUM 1.3 mg/dL (1.8-2.4)
[2016-09-18] MEDS ORDERED: ACETAMINOPHEN 325 MG TABLET. PO ONE (06:00)
[2016-09-18] MEDS: methylPREDNISolone SOD SUCC PF 40 MG/ML VIAL. IV SCH (06:12)
--- NOTE | 2016-09-18 07:43 | PDOC ---
SUBJECTIVE ROS BLAIR Doing better overall x for a fall last pm CVS: no Orthopnea, no CP RESP: no SOB, no BURNETT GI: no Nausea, no Vomiting : no Dysuria, no Urgency OBJECTIVE Vital Signs Vital Signs Date Time Temp Pulse Resp B/P Pulse Ox O2 Delivery O2 Flow Rate FiO2 09/18/16 05:48 92 Nasal Cannula 3.0 09/18/16 04:32 186/96 09/18/16 03:32 97.7 90 20 97.7 I & 0 Intake and Output 09/18/16 07:00 Output Total 3600 ml Balance -3600 ml Output Urine Total 3600 ml PHYSICAL EXAM Physical Exam General Appearance: Awake Alert Oriented x 3 In no Distress; Morbidly obese WF Eyes: VIsion Unchanged Conjunctiva Normal EN: No EN Drainage Mucous Memb. drysih Neck: no JVD no JVP Supple no Thyromegaly; Short thick neck CVS: S1 S2 ? Murmur No Gallop No Rub tr Edema vs Pre-tibial fat - Distal HS Resp: no Rales no Rhonchi no Acc. Muscle use; barely audible BS due to obesity GI: BAS +ve NO Bruit Non Tender Non Distended; morbidly obese : no CVA tenderness; no Suprapubic Tenderness Assessment & Plan BLAIR - resolved Anemia: check Iron; she appears Microcytic so will start empiric PO Iron - defer to Primary team to update colonoscopy as needed Accel HTN: resume Current home BP meds and review; Increased PIERRE-i for now due to steroids Sev ^ Phos - Unclear etio; CK noted to be WNL, denies H/o Phosphate based Laxatives/ enemas; Normalized today HypoMag - replace as ordered Will sign off - pl call with Qs COMMENT/RELEVANT DATA Meds Current Medications Medications (Trade) Dose Ordered Sig/Natalie Start Time Stop Time Status Last Admin Dose Admin Acetaminophen (Tylenol) 325 mg 1X ONCE 09/18/16 06:00 09/18/16 06:06 DC 09/18/16 06:12 325 MG Acetaminophen/ Hydrocodone Bitart (Lortab 5/325) 1 tab PRN Q6HRS PRN 09/16/16 09:00 09/17/16 16:32 DC 09/17/16 03:58 1 TAB Albuterol Sulfate (Ventolin Neb Soln) 2.5 mg PRN Q4HRS PRN 09/16/16 09:00 09/18/16 05:47 2.5 MG Albuterol/ Ipratropium (Duoneb) 3 ml RTQID 09/16/16 12:00 09/17/16 19:33 3 ML Alprazolam 0.5 mg 0.5 mg 1X ONCE 09/16/16 21:30 09/16/16 21:31 DC 09/16/16 21:22 0.5 MG Carvedilol (Coreg) 25 mg TIDWMEALS 09/17/16 12:00 09/17/16 17:42 25 MG Dextrose 12.5 gm PRN Q15MIN PRN 09/16/16 09:15 Diltiazem HCl (Cardizem 24hr Cd) 180 mg DAILY 09/18/16 09:00 UNV Fentanyl (Duragesic 50mcg/ Hr Patch) 1 patch Q3DAYS 09/17/16 17:00 09/17/16 17:41 1 PATCH Furosemide (Lasix) 80 mg DAILY 09/17/16 12:00 09/17/16 12:49 80 MG Hydralazine HCl (Apresoline) 10 mg PRN Q2HRS PRN 09/16/16 21:15 09/18/16 04:32 10 MG Hydrochlorothiazide (Microzide) 12.5 mg DAILY 09/17/16 13:00 09/17/16 12:49 12.5 MG Insulin Aspart (Novolog) 0-9 UNITS TIDWMEALS 09/16/16 12:00 09/16/16 21:33 DC 09/16/16 17:50 5 UNITS Insulin Aspart 0-9 UNITS QIDACHS 09/16/16 21:45 09/17/16 21:19 5 UNITS Insulin Detemir (Levemir) 60 units DAILY 09/17/16 21:00 Cancel Linagliptin (Tradjenta) 5 mg DAILY 09/18/16 09:00 Lisinopril (Prinivil) 10 mg DAILY 09/18/16 09:00 Magnesium Chloride (Mag Delay) 64 mg DAILY 09/17/16 13:00 09/17/16 12:50 64 MG Magnesium Sulfate/ Dextrose (Magnesium Sulfate PREMIX 2GM) 50 ml @ 25 mls/hr PRN DAILY PRN 09/17/16 10:00 Methylprednisolone Sodium Succinate (Solu-Medrol 40mg Vial) 40 mg Q8HRS 09/16/16 10:00 09/18/16 06:12 40 MG Montelukast Sodium (Singulair) 10 mg HS 09/17/16 21:00 09/17/16 21:15 10 MG Morphine Sulfate (Ms Contin) 15 mg BID 09/17/16 12:00 09/17/16 21:16 15 MG Nicardipine HCl/ Sodium Chloride (Cardene/Iv Sodium Chloride 0.9% 250ml) 270 ml @ 0 mls/hr CONT PRN 09/16/16 21:15 09/17/16 05:48 27 MLS/HR Non-Formulary Medication 60 unit DAILY 09/18/16 09:00 UNV Ondansetron HCl (Zofran) 4 mg PRN Q8HRS PRN 09/16/16 09:00 09/16/16 09:56 4 MG Pantoprazole Sodium (Protonix) 40 mg DAILY 09/17/16 13:00 09/17/16 12:49 40 MG Potassium Chloride (Klor-Con) 20 meq TIDWMEALS 09/18/16 12:00 Prednisone (Prednisone) 10 mg DAILY 09/17/16 12:00 09/17/16 12:48 10 MG Primidone (Mysoline) 50 mg BID 09/17/16 12:00 09/17/16 21:15 50 MG Promethazine HCl (Phenergan) 25 mg PRN Q6HRS PRN 09/17/16 12:15 Tramadol HCl (Ultram) 50 mg PRN Q6HRS PRN 09/16/16 19:45 09/17/16 16:32 DC 09/17/16 15:30 50 MG Zolpidem Tartrate (Ambien) 5 mg PRN QHS PRN 09/17/16 12:15 09/17/16 21:15 5 MG Lab Laboratory Tests Test 09/17/16 10:40 09/17/16 12:36 09/17/16 17:43 09/17/16 21:06 25-Hydroxy Vitamin D Total <4.0ng/mL (30.0-100.0) Glucose (Fingerstick) 211mg/dL (70-99) 209mg/dL (70-99) 244mg/dL (70-99) Test 2/23/17 04:25 White Blood Count 9.8x10^3/uL (4.0-11.0) Red Blood Count 4.90x10^6/uL (3.50-5.40) Hemoglobin 11.4g/dL (12.0-15.5) Hematocrit 36.6% (36.0-47.0) Mean Corpuscular Volume 75fL (79-100) Mean Corpuscular Hemoglobin 23pg (25-35) Mean Corpuscular Hemoglobin Concent 31g/dL (31-37) Red Cell Distribution Width 19.8% (11.5-14.5) Platelet Count 328x10^3/uL (140-400) Neutrophils (%) (Auto) 93% (31-73) Lymphocytes (%) (Auto) 4% (24-48) Monocytes (%) (Auto) 3% (0-9) Eosinophils (%) (Auto) 0% (0-3) Basophils (%) (Auto) 0% (0-3) Neutrophils # (Auto) 9.1x10^3uL (1.8-7.7) Lymphocytes # (Auto) 0.4x10^3/uL (1.0-4.8) Monocytes # (Auto) 0.3x10^3/uL (0.0-1.1) Eosinophils # (Auto) 0.0x10^3/uL (0.0-0.7) Basophils # (Auto) 0.0x10^3/uL (0.0-0.2) Sodium Level 139mmol/L (136-145) Potassium Level 4.4mmol/L (3.5-5.1) Chloride Level 99mmol/L (98-107) Carbon Dioxide Level 37mmol/L (21-32) Anion Gap 3 (6-14) Blood Urea Nitrogen 32mg/dL (7-20) Creatinine 1.1mg/dL (0.6-1.0) Estimated GFR (Cockcroft-Gault) 50.7 Glucose Level 229mg/dL (70-99) Calcium Level 9.3mg/dL (8.5-10.1) Phosphorus Level 3.0mg/dL (2.6-4.7) Magnesium Level 1.3mg/dL (1.8-2.4) Creatine Kinase 69U/L (26-192) Albumin 2.8g/dL (3.4-5.0) ADEEL HERNANDEZ MD Sep 18, 2016 07:43
[2016-09-18 07:55] VITALS: BP 164/86
[2016-09-18] MEDS: IPRATRPIUM/ALBUTEROL 0.5/2.5MG 3 ML NEBU. NEB SCH ×4 (08:39→19:45)
[2016-09-18] MEDS: PRIMIDONE 50 MG TABLET PO SCH ×2 (08:56→20:52)
[2016-09-18] MEDS: DILTIAZEM HCL 180 MG CAP.ER.24H PO SCH (08:58)
[2016-09-18] MEDS: MAGNESIUM CHLORIDE ER 64 MG TABLET.ER PO SCH ×2 (08:58)
[2016-09-18] MEDS: LISINOPRIL 40 MG TABLET. PO SCH (08:59)
[2016-09-18] MEDS: MORPHINE ER 15 MG TABLET.ER PO SCH ×2 (08:59→20:51)
[2016-09-18] MEDS: PANTOPRAZOLE 40 MG TABLET. PO SCH (08:59)
[2016-09-18] MEDS ORDERED: LISINOPRIL 10 MG TABLET PO SCH (09:00)
[2016-09-18] MEDS: PREDNISONE 10 MG TABLET PO SCH (09:00)
[2016-09-18] MEDS ORDERED: ERGOCALCIFEROL (VITAMIN D2) 50,000 UNIT CAPSULE PO SCH (09:00)
[2016-09-18] MEDS: LINAGLIPTIN 5 MG TABLET PO SCH (09:00)
[2016-09-18] MEDS ORDERED: NON FORMULARY ITEM (Tiotropium Bromide (Spiriva) 1 CAP) IH SCH (09:00)
[2016-09-18] MEDS: FUROSEMIDE 80 MG TABLET PO SCH (09:00)
[2016-09-18] MEDS ORDERED: DILTIAZEM HCL 180 MG CAP.ER.24H PO SCH (09:00)
[2016-09-18] MEDS ORDERED: INSULIN GLARGINE 300 UNIT/ML SQ SCH (09:00)
[2016-09-18] MEDS: HYDROCHLOROTHIAZIDE 12.5 MG CAPSULE. PO SCH (09:00)
[2016-09-18] MEDS: CARVEDILOL 12.5 MG TABLET PO SCH ×3 (09:01→18:02)
[2016-09-18] MEDS: FERROUS SULFATE ORAL 300 MG/5 ML SOLUTION. PO SCH ×2 (09:12→18:03)
[2016-09-18] MEDS: INSULIN ASPART 300 UNITS/3 ML INSULN.PEN SQ SCH ×4 (09:15→20:56)
--- NOTE | 2016-09-18 10:39 | PDOC ---
PROGRESS NOTES Chief Complaint Chief Complaint cc: ams A/P 1. Encephalopathy, respiratory acidosis, hypercapnic/ hypoxic respiratory failure. resolved. 2. Accelerated HTN improving 3. Renal failure, unknown baseline creatinine. 4. Mild leukocytosis. 5. Hyperkalemia. labs pending 6. DM 7. HX CHF Plan BP not controlled PRN BIPAP Home medications reviewed avoid narcotics monitor renal functions SSI with Levemir iv solumedrol PRN nebulizations follow pulmonology History of Present Illness History of Present Illness Doing better no fever confusion better Vitals Vitals Vital Signs Date Time Temp Pulse Resp B/P Pulse Ox O2 Delivery O2 Flow Rate FiO2 09/18/16 09:01 90 164/86 09/18/16 08:59 Nasal Cannula 3.0 09/18/16 08:40 96 09/18/16 07:55 98.1 20 98.1 Physical Exam General: Alert, Oriented X3 Heart: Normal S1, Normal S2 Lungs: Clear, Other (decrease bs) Abdomen: Normal bowel sounds Extremities: No clubbing Labs LABS Laboratory Tests Test 09/17/16 10:40 09/17/16 12:36 09/17/16 17:43 09/17/16 21:06 25-Hydroxy Vitamin D Total <4.0ng/mL (30.0-100.0) Glucose (Fingerstick) 211mg/dL (70-99) 209mg/dL (70-99) 244mg/dL (70-99) Test 09/18/16 04:25 09/18/16 08:04 White Blood Count 9.8x10^3/uL (4.0-11.0) Red Blood Count 4.90x10^6/uL (3.50-5.40) Hemoglobin 11.4g/dL (12.0-15.5) Hematocrit 36.6% (36.0-47.0) Mean Corpuscular Volume 75fL (79-100) Mean Corpuscular Hemoglobin 23pg (25-35) Mean Corpuscular Hemoglobin Concent 31g/dL (31-37) Red Cell Distribution Width 19.8% (11.5-14.5) Platelet Count 328x10^3/uL (140-400) Neutrophils (%) (Auto) 93% (31-73) Lymphocytes (%) (Auto) 4% (24-48) Monocytes (%) (Auto) 3% (0-9) Eosinophils (%) (Auto) 0% (0-3) Basophils (%) (Auto) 0% (0-3) Neutrophils # (Auto) 9.1x10^3uL (1.8-7.7) Lymphocytes # (Auto) 0.4x10^3/uL (1.0-4.8) Monocytes # (Auto) 0.3x10^3/uL (0.0-1.1) Eosinophils # (Auto) 0.0x10^3/uL (0.0-0.7) Basophils # (Auto) 0.0x10^3/uL (0.0-0.2) Reticulocyte Count (auto) 2.1% (0.5-2.5) Sodium Level 139mmol/L (136-145) Potassium Level 4.4mmol/L (3.5-5.1) Chloride Level 99mmol/L (98-107) Carbon Dioxide Level 37mmol/L (21-32) Anion Gap 3 (6-14) Blood Urea Nitrogen 32mg/dL (7-20) Creatinine 1.1mg/dL (0.6-1.0) Estimated GFR (Cockcroft-Gault) 50.7 Glucose Level 229mg/dL (70-99) Calcium Level 9.3mg/dL (8.5-10.1) Phosphorus Level 3.0mg/dL (2.6-4.7) Magnesium Level 1.3mg/dL (1.8-2.4) Creatine Kinase 69U/L (26-192) Albumin 2.8g/dL (3.4-5.0) Glucose (Fingerstick) 212mg/dL (70-99) Assessment and Plan Assessmemt and Plan Problems Medical Problems: (1) Hypercapnic respiratory failure Status: Acute Problems: Comment Review of Relevant I have reviewed the following items chavez (where applicable) has been applied. Labs Laboratory Tests Test 09/16/16 11:50 09/16/16 12:00 09/16/16 15:55 09/16/16 17:44 Glucose (Fingerstick) 146mg/dL (70-99) 202mg/dL (70-99) O2 Saturation 93% (92-99) Arterial Blood pH 7.32 (7.35-7.45) Arterial Blood pCO2 at Patient Temp 66mmHg (35-46) Arterial Blood pO2 at Patient Temp 72mmHg (65-108) Arterial Blood HCO3 33mmol/L (21-28) Arterial Blood Base Excess 5mmol/L (-3-3) FiO2 30 Ammonia 13mcmol/L (11-34) Test 09/16/16 21:29 09/17/16 05:32 09/17/16 10:40 09/17/16 12:36 Glucose (Fingerstick) 246mg/dL (70-99) 211mg/dL (70-99) White Blood Count 11.5x10^3/uL (4.0-11.0) Red Blood Count 5.05x10^6/uL (3.50-5.40) Hemoglobin 11.5g/dL (12.0-15.5) Hematocrit 38.4% (36.0-47.0) Mean Corpuscular Volume 76fL (79-100) Mean Corpuscular Hemoglobin 23pg (25-35) Mean Corpuscular Hemoglobin Concent 30g/dL (31-37) Red Cell Distribution Width 19.4% (11.5-14.5) Platelet Count 349x10^3/uL (140-400) Neutrophils (%) (Auto) 90% (31-73) Lymphocytes (%) (Auto) 5% (24-48) Monocytes (%) (Auto) 5% (0-9) Eosinophils (%) (Auto) 0% (0-3) Basophils (%) (Auto) 0% (0-3) Neutrophils # (Auto) 10.4x10^3uL (1.8-7.7) Lymphocytes # (Auto) 0.6x10^3/uL (1.0-4.8) Monocytes # (Auto) 0.5x10^3/uL (0.0-1.1) Eosinophils # (Auto) 0.0x10^3/uL (0.0-0.7) Basophils # (Auto) 0.0x10^3/uL (0.0-0.2) Segmented Neutrophils % 94% (35-66) Lymphocytes % 3% (24-48) Monocytes % 3% (0-10) Platelet Estimate Adequate (ADEQUATE) Sodium Level 138mmol/L (136-145) Potassium Level 4.1mmol/L (3.5-5.1) Chloride Level 99mmol/L (98-107) Carbon Dioxide Level 35mmol/L (21-32) Anion Gap 4 (6-14) Blood Urea Nitrogen 43mg/dL (7-20) Creatinine 1.4mg/dL (0.6-1.0) Estimated GFR (Cockcroft-Gault) 38.4 Glucose Level 209mg/dL (70-99) Calcium Level 8.9mg/dL (8.5-10.1) 25-Hydroxy Vitamin D Total <4.0ng/mL (30.0-100.0) Test 09/17/16 17:43 09/17/16 21:06 09/18/16 04:25 09/18/16 08:04 Glucose (Fingerstick) 209mg/dL (70-99) 244mg/dL (70-99) 212mg/dL (70-99) White Blood Count 9.8x10^3/uL (4.0-11.0) Red Blood Count 4.90x10^6/uL (3.50-5.40) Hemoglobin 11.4g/dL (12.0-15.5) Hematocrit 36.6% (36.0-47.0) Mean Corpuscular Volume 75fL (79-100) Mean Corpuscular Hemoglobin 23pg (25-35) Mean Corpuscular Hemoglobin Concent 31g/dL (31-37) Red Cell Distribution Width 19.8% (11.5-14.5) Platelet Count 328x10^3/uL (140-400) Neutrophils (%) (Auto) 93% (31-73) Lymphocytes (%) (Auto) 4% (24-48) Monocytes (%) (Auto) 3% (0-9) Eosinophils (%) (Auto) 0% (0-3) Basophils (%) (Auto) 0% (0-3) Neutrophils # (Auto) 9.1x10^3uL (1.8-7.7) Lymphocytes # (Auto) 0.4x10^3/uL (1.0-4.8) Monocytes # (Auto) 0.3x10^3/uL (0.0-1.1) Eosinophils # (Auto) 0.0x10^3/uL (0.0-0.7) Basophils # (Auto) 0.0x10^3/uL (0.0-0.2) Reticulocyte Count (auto) 2.1% (0.5-2.5) Sodium Level 139mmol/L (136-145) Potassium Level 4.4mmol/L (3.5-5.1) Chloride Level 99mmol/L (98-107) Carbon Dioxide Level 37mmol/L (21-32) Anion Gap 3 (6-14) Blood Urea Nitrogen 32mg/dL (7-20) Creatinine 1.1mg/dL (0.6-1.0) Estimated GFR (Cockcroft-Gault) 50.7 Glucose Level 229mg/dL (70-99) Calcium Level 9.3mg/dL (8.5-10.1) Phosphorus Level 3.0mg/dL (2.6-4.7) Magnesium Level 1.3mg/dL (1.8-2.4) Creatine Kinase 69U/L (26-192) Albumin 2.8g/dL (3.4-5.0) Laboratory Tests Test 09/17/16 10:40 09/17/16 12:36 09/17/16 17:43 09/17/16 21:06 25-Hydroxy Vitamin D Total <4.0ng/mL (30.0-100.0) Glucose (Fingerstick) 211mg/dL (70-99) 209mg/dL (70-99) 244mg/dL (70-99) Test 09/18/16 04:25 09/18/16 08:04 White Blood Count 9.8x10^3/uL (4.0-11.0) Red Blood Count 4.90x10^6/uL (3.50-5.40) Hemoglobin 11.4g/dL (12.0-15.5) Hematocrit 36.6% (36.0-47.0) Mean Corpuscular Volume 75fL (79-100) Mean Corpuscular Hemoglobin 23pg (25-35) Mean Corpuscular Hemoglobin Concent 31g/dL (31-37) Red Cell Distribution Width 19.8% (11.5-14.5) Platelet Count 328x10^3/uL (140-400) Neutrophils (%) (Auto) 93% (31-73) Lymphocytes (%) (Auto) 4% (24-48) Monocytes (%) (Auto) 3% (0-9) Eosinophils (%) (Auto) 0% (0-3) Basophils (%) (Auto) 0% (0-3) Neutrophils # (Auto) 9.1x10^3uL (1.8-7.7) Lymphocytes # (Auto) 0.4x10^3/uL (1.0-4.8) Monocytes # (Auto) 0.3x10^3/uL (0.0-1.1) Eosinophils # (Auto) 0.0x10^3/uL (0.0-0.7) Basophils # (Auto) 0.0x10^3/uL (0.0-0.2) Reticulocyte Count (auto) 2.1% (0.5-2.5) Sodium Level 139mmol/L (136-145) Potassium Level 4.4mmol/L (3.5-5.1) Chloride Level 99mmol/L (98-107) Carbon Dioxide Level 37mmol/L (21-32) Anion Gap 3 (6-14) Blood Urea Nitrogen 32mg/dL (7-20) Creatinine 1.1mg/dL (0.6-1.0) Estimated GFR (Cockcroft-Gault) 50.7 Glucose Level 229mg/dL (70-99) Calcium Level 9.3mg/dL (8.5-10.1) Phosphorus Level 3.0mg/dL (2.6-4.7) Magnesium Level 1.3mg/dL (1.8-2.4) Creatine Kinase 69U/L (26-192) Albumin 2.8g/dL (3.4-5.0) Glucose (Fingerstick) 212mg/dL (70-99) Medications Current Medications Acetaminophen (Tylenol) 325 mg PRN Q6HRS PRN PO MILD PAIN / TEMP Last administered on 09/18/16t 04:44; Start 09/16/16 at 09:00; Stop 09/18/16 at 05:39 ; Status DC Acetaminophen/ Hydrocodone Bitart (Lortab 5325) 1 tab PRN Q6HRS PRN PO SEVERE PAIN Last administered on 09/17/16 03:58; Start 09/16/16 at 09:00; Stop at 16:32; Status DC Hydralazine HCl (Apresoline) 10 mg PRN Q4HRS PRN IVP ELEVATED BP, SEE COMMENTS Last administered on 09/16/16 18:25; Start 09/16/16 at 09:00; Stop 09/16/16 at 21:11; Status DC Ondansetron HCl (Zofran) 4 mg PRN Q8HRS PRN IV NAUSEA/VOMITING Last administered on 09/16/16 09:56; Start 09/16/16 at 09:00 Albuterol Sulfate (Ventolin Neb Soln) 2.5 mg PRN Q4HRS PRN NEB SHORTNESS OF BREATH Last administered on 09/18/16 05:47; Start 09/16/16 at 09:00 Insulin Aspart (Novolog) 0-9 UNITS TIDWMEALS SQ Last administered on 09/16/16 17:50; Start 09/16/16 at 12:00; Stop 09/16/16 at 21:33; Status DC Dextrose 12.5 gm PRN Q15MIN PRN IV SEE COMMENTS; Start 09/16/16 at 09:15 Methylprednisolone Sodium Succinate (Solu-Medrol 40mg Vial) 40 mg Q8HRS IV Last administered on 09/18/16 06:12; Start 09/16/16 at 10:00 Albuterol/ Ipratropium (Duoneb) 3 ml RTQID NEB Last administered on 09/18/16 08:39; Start 09/16/16 at 12:00 Diltiazem HCl (Cardizem 24hr Cd) 180 mg DAILY PO Last administered on 08:58; Start 09/16/16 at 20:00 Lisinopril (Prinivil) 5 mg DAILY PO Last administered on 09/17/16 08:19; Start 09/16/16 at 20:00; Stop 09/17/16 at 12:06; Status DC Tramadol HCl (Ultram) 50 mg PRN Q6HRS PRN PO moderate pain Last administered on 09/17/16 15:30; Start 09/16/16 at 19:45; Stop 09/17/16 at 16:32; Status DC Hydralazine HCl (Apresoline) 10 mg PRN Q2HRS PRN IVP ELEVATED BP, SEE COMMENTS Last administered on 09/18/16 04:32; Start 09/16/16 at 21:15 Alprazolam 0.5 mg 0.5 mg 1X ONCE PO Last administered on 09/16/16 21:22; Start 09/16/16 at 21:30; Stop 09/16/16 at 21:31; Status DC Nicardipine HCl/ Sodium Chloride (Cardene/Iv Sodium Chloride 0.9% 250ml) 270 ml @ 0 mls/hr CONT PRN IV SEE I/O RECORD Last administered on 09/17/16 05:48; Start 09/16/16 at 21:15 Insulin Aspart 0-9 UNITS QIDACHS SQ Last administered on 09/18/16 09:15; Start 09/16/16 at 21:45 Magnesium Sulfate/ Dextrose (Magnesium Sulfate PREMIX 2GM) 50 ml @ 25 mls/hr PRN DAILY PRN IV for Mag < 1.7 on am labs Last administered on 09/18/16 09:12 ; Start 09/17/16 at 10:00 Diltiazem HCl (Cardizem 24hr Cd) 180 mg DAILY PO ; Start 09/18/16 at 09:00; Status UNV Furosemide (Lasix) 80 mg DAILY PO Last administered on 09/18/16 09:00; Start 09/17/16 at 12:00 Montelukast Sodium (Singulair) 10 mg HS PO Last administered on 09/17/16 21:15 ; Start 09/17/16 at 21:00 Morphine Sulfate (Ms Contin) 15 mg BID PO Last administered on 09/18/16 08:59 ; Start 09/17/16 at 12:00 Pantoprazole Sodium (Protonix) 40 mg DAILY PO Last administered on 09/18/16 08 :59; Start 09/17/16 at 13:00 Prednisone (Prednisone) 10 mg DAILY PO Last administered on 09/18/16 09:00; Start 09/17/16 at 12:00 Primidone (Mysoline) 50 mg BID PO Last administered on 09/18/16 08:56; Start 09/17/16 at 12:00 Non-Formulary Medication 2 puff PRN Q4-6HRS IH ; Start 09/17/16 at 11:45; Status UNV Carvedilol (Coreg) 25 mg TIDWMEALS PO Last administered on 09/18/16 09:01; Start 09/17/16 at 12:00 Insulin Detemir (Levemir) 60 units DAILY SQ ; Start 09/17/16 at 21:00; Status Cancel Lisinopril (Prinivil) 10 mg DAILY PO ; Start 09/17/16 at 13:00; Stop 09/17/16 at 13:00; Status DC Magnesium Chloride (Mag Delay) 64 mg DAILY PO Last administered on 09/18/16 08 :58; Start 09/17/16 at 13:00 Potassium Chloride (Klor-Con) 20 meq TIDWMEALS PO ; Start 09/18/16 at 12:00 Promethazine HCl (Phenergan) 25 mg PRN Q6HRS PRN PO NAUSEA/VOMITING; Start at 12:15 Linagliptin (Tradjenta) 5 mg DAILY PO Last administered on 09/18/16 09:00; Start 09/18/16 at 09:00 Non-Formulary Medication 1 cap DAILY IH ; Start 09/18/16 at 09:00; Status UNV Non-Formulary Medication 10 mg DAILY PO ; Start 09/18/16 at 09:00; Status UNV Zolpidem Tartrate (Ambien) 5 mg PRN QHS PRN PO INSOMNIA. [id number] Last administered on 09/17/16 21:15; Start 09/17/16 at 12:15 Hydrochlorothiazide (Microzide) 12.5 mg DAILY PO Last administered on 09:00; Start 09/17/16 at 13:00 Lisinopril (Prinivil) 10 mg DAILY PO ; Start 09/18/16 at 09:00; Stop 09/18/16 at 09:00; Status DC Non-Formulary Medication 60 unit DAILY SQ ; Start 09/18/16 at 09:00; Status UNV Fentanyl (Duragesic 50mcg/ Hr Patch) 1 patch Q3DAYS TD Last administered on 17:41; Start 09/17/16 at 17:00 Acetaminophen (Tylenol) 650 mg PRN Q6HRS PRN PO MILD PAIN / TEMP; Start at 06:00 Acetaminophen (Tylenol) 325 mg 1X ONCE PO Last administered on 09/18/16 06:12 ; Start 09/18/16 at 06:00; Stop 09/18/16 at 06:06; Status DC Lisinopril (Prinivil) 40 mg DAILY PO Last administered on 09/18/16 08:59; Start 09/18/16 at 09:00 Ferrous Sulfate 300 mg BIDWMEALS PO Last administered on 09/18/16 09:12; Start 09/18/16 at 08:00 Ergocalciferol (Vitamin D2) 50,000 unit WEEKLY PO Last administered on 08:59; Start 09/18/16 at 09:00 Active Scripts Active Morphine Sulfate Er (Morphine Sulfate) 15 Mg Tablet.er 15 Mg PO BID Reported Marcial Gamez (Insulin Glargine,Hum.rec.anlog) 300 Unit/1 Ml Insuln.pen 60 Unit SQ DAILY Calcium Carbonate 200 Mg Tab.chew 200 Mg PO Mag64 (Magnesium Chloride) 64 Mg Tablet.er 64 Mg PO DAILY Trintellix (Vortioxetine) 10 Mg Tablet 10 Mg PO DAILY Primidone 50 Mg Tablet 50 Mg PO BID Prednisone 10 Mg Tablet 10 Mg PO DAILY Potassium Chloride 20 Meq Tablet.er 20 Meq PO TID Metoclopramide Hcl 10 Mg Tablet 10 Mg PO QIDACHS Novolog (Insulin Aspart) 100 Unit/1 Ml Vial 100 Unit SQ Lisinopril-Hctz 10-12.5 Mg Tab (Lisinopril/Hydrochlorothiazide) 1 Each Tablet 1 Tab PO DAILY Furosemide 80 Mg Tablet 1 Tab PO DAILY FENTANYL 100mcg/hr (Fentanyl) 1 Each Patch.td72 0.5 Patch TP Q3DAYS Carvedilol 25 Mg Tablet 1 Tab PO TID Acetaminophen 500 Mg Tablet 1 Tab PO Q6HRS Benzonatate 100 Mg Capsule 1 Cap PO TID PRN Atorvastatin Calcium 40 Mg Tablet 40 Mg PO HS Spiriva (Tiotropium [place]) 18 Mcg Cap.w.dev 1 Cap IH DAILY Ambien (Zolpidem Tartrate) 10 Mg Tablet 10 Mg PO HS PRN Pantoprazole Sodium 40 Mg Tablet.dr 40 Mg PO DAILY Januvia (Sitagliptin Phosphate) 100 Mg Tablet 100 Mg PO DAILY Singulair Tablet (Montelukast Sodium) 10 Mg Tablet 10 Mg PO HS Promethazine Hcl 25 Mg Tablet 25 Mg PO Q6H PRN Proair Hfa Inhaler (Albuterol Sulfate) 8.5 Gm Hfa.aer.ad 2 Puff IH PRN Q4-6HRS Diltiazem 24HR Cd (Diltiazem Hcl) 180 Mg Cap.er.24h 180 Mg PO DAILY Vitals/I & O Vital Sign - Last 24 Hours 09/17/16 09/17/16 09/17/16 09/17/16 12:00 12:00 12:00 12:16 Temp 98.4 98.4 Pulse 102 Resp 30 B/P 168/78 Pulse Ox 92 96 O2 Delivery Nasal Cannula Nasal Cannula Nasal Cannula O2 Flow Rate 2.0 1.5 3.0 3.0 09/17/16 09/17/16 09/17/16 09/17/16 12:49 12:49 15:30 16:00 Pulse 120 B/P 178/82 Pulse Ox 92 92 O2 Delivery Nasal Cannula Nasal Cannula Nasal Cannula O2 Flow Rate 3.0 3.0 3.0 09/17/16 09/17/16 09/17/16 09/17/16 16:00 16:00 16:28 16:49 Temp 98.6 98.6 Pulse 90 Resp 30 B/P 175/81 Pulse Ox 92 92 92 O2 Delivery Nasal Cannula Nasal Cannula O2 Flow Rate 2.0 1.5 3.0 09/17/16 09/17/16 09/17/16 09/17/16 17:41 17:42 18:42 19:32 Pulse 93 102 Resp 30 B/P 168/72 168/78 Pulse Ox 92 92 90 O2 Delivery Nasal Cannula Nasal Cannula Nasal Cannula O2 Flow Rate 3.0 2.0 3.0 09/17/16 09/17/16 09/17/16 09/17/16 20:00 20:00 21:16 21:41 Temp 98.6 98.6 Pulse 90 Resp 29 24 24 B/P 164/86 Pulse Ox 95 O2 Delivery Nasal Cannula Nasal Cannula Nasal Cannula Nasal Cannula O2 Flow Rate 3.0 3.0 3.0 3.0 09/17/16 09/18/16 09/18/16 09/18/16 23:00 01:17 03:32 04:32 Temp 98.5 97.7 98.5 97.7 Pulse 82 90 Resp 20 20 20 B/P 172/85 186/96 186/96 Pulse Ox 96 97 O2 Delivery Nasal Cannula Nasal Cannula Nasal Cannula O2 Flow Rate 3.0 2.5 3.0 09/18/16 09/18/16 09/18/16 09/18/16 05:48 07:55 08:40 08:58 Temp 98.1 98.1 Pulse 90 90 Resp 20 B/P 164/86 164/86 Pulse Ox 92 96 96 O2 Delivery Nasal Cannula Nasal Cannula Nasal Cannula O2 Flow Rate 3.0 3.0 09/18/16 09/18/16 09/18/16 08:59 08:59 09:01 Pulse 90 90 B/P 164/86 164/86 O2 Delivery Nasal Cannula O2 Flow Rate 3.0 Intake and Output 09/17/16 09/17/16 09/18/16 15:00 23:00 07:00 Output Total 3250 ml 350 ml Balance -3250 ml -350 ml JACKIE CHAMBERLAIN MD Sep 18, 2016 10:39
[2016-09-18 11:15] VITALS: BP 160/74
[2016-09-18] MEDS: POTASSIUM CHLORIDE 20 MEQ TABLET.ER. PO SCH ×2 (12:48→18:02)
--- NOTE | 2016-09-18 12:51 | PDOC ---
PULMONARY PROGRESS NOTES Subjective feels better does not tolerate BIPAP wants to go home Vitals Vital Signs Date Time Temp Pulse Resp B/P Pulse Ox O2 Delivery O2 Flow Rate FiO2 09/18/16 12:14 Nasal Cannula 3.0 09/18/16 11:15 97.5 68 22 160/74 97 97.5 General: Alert, No acute distress Lungs: Other (decrease bs) Cardiovascular: S1, S2 Abdomen: Soft, Non-tender Neuro Exam: Alert Extremities: No Edema Labs Laboratory Tests Test 09/16/16 15:55 09/16/16 17:44 09/16/16 21:29 09/17/16 05:32 Ammonia 13mcmol/L (11-34) Glucose (Fingerstick) 202mg/dL (70-99) 246mg/dL (70-99) White Blood Count 11.5x10^3/uL (4.0-11.0) Red Blood Count 5.05x10^6/uL (3.50-5.40) Hemoglobin 11.5g/dL (12.0-15.5) Hematocrit 38.4% (36.0-47.0) Mean Corpuscular Volume 76fL (79-100) Mean Corpuscular Hemoglobin 23pg (25-35) Mean Corpuscular Hemoglobin Concent 30g/dL (31-37) Red Cell Distribution Width 19.4% (11.5-14.5) Platelet Count 349x10^3/uL (140-400) Neutrophils (%) (Auto) 90% (31-73) Lymphocytes (%) (Auto) 5% (24-48) Monocytes (%) (Auto) 5% (0-9) Eosinophils (%) (Auto) 0% (0-3) Basophils (%) (Auto) 0% (0-3) Neutrophils # (Auto) 10.4x10^3uL (1.8-7.7) Lymphocytes # (Auto) 0.6x10^3/uL (1.0-4.8) Monocytes # (Auto) 0.5x10^3/uL (0.0-1.1) Eosinophils # (Auto) 0.0x10^3/uL (0.0-0.7) Basophils # (Auto) 0.0x10^3/uL (0.0-0.2) Segmented Neutrophils % 94% (35-66) Lymphocytes % 3% (24-48) Monocytes % 3% (0-10) Platelet Estimate Adequate (ADEQUATE) Sodium Level 138mmol/L (136-145) Potassium Level 4.1mmol/L (3.5-5.1) Chloride Level 99mmol/L (98-107) Carbon Dioxide Level 35mmol/L (21-32) Anion Gap 4 (6-14) Blood Urea Nitrogen 43mg/dL (7-20) Creatinine 1.4mg/dL (0.6-1.0) Estimated GFR (Cockcroft-Gault) 38.4 Glucose Level 209mg/dL (70-99) Calcium Level 8.9mg/dL (8.5-10.1) Test 09/17/16 10:40 09/17/16 12:36 09/17/16 17:43 09/17/16 21:06 25-Hydroxy Vitamin D Total <4.0ng/mL (30.0-100.0) Glucose (Fingerstick) 211mg/dL (70-99) 209mg/dL (70-99) 244mg/dL (70-99) Test 09/18/16 04:25 09/18/16 08:04 09/18/16 11:37 White Blood Count 9.8x10^3/uL (4.0-11.0) Red Blood Count 4.90x10^6/uL (3.50-5.40) Hemoglobin 11.4g/dL (12.0-15.5) Hematocrit 36.6% (36.0-47.0) Mean Corpuscular Volume 75fL (79-100) Mean Corpuscular Hemoglobin 23pg (25-35) Mean Corpuscular Hemoglobin Concent 31g/dL (31-37) Red Cell Distribution Width 19.8% (11.5-14.5) Platelet Count 328x10^3/uL (140-400) Neutrophils (%) (Auto) 93% (31-73) Lymphocytes (%) (Auto) 4% (24-48) Monocytes (%) (Auto) 3% (0-9) Eosinophils (%) (Auto) 0% (0-3) Basophils (%) (Auto) 0% (0-3) Neutrophils # (Auto) 9.1x10^3uL (1.8-7.7) Lymphocytes # (Auto) 0.4x10^3/uL (1.0-4.8) Monocytes # (Auto) 0.3x10^3/uL (0.0-1.1) Eosinophils # (Auto) 0.0x10^3/uL (0.0-0.7) Basophils # (Auto) 0.0x10^3/uL (0.0-0.2) Reticulocyte Count (auto) 2.1% (0.5-2.5) Sodium Level 139mmol/L (136-145) Potassium Level 4.4mmol/L (3.5-5.1) Chloride Level 99mmol/L (98-107) Carbon Dioxide Level 37mmol/L (21-32) Anion Gap 3 (6-14) Blood Urea Nitrogen 32mg/dL (7-20) Creatinine 1.1mg/dL (0.6-1.0) Estimated GFR (Cockcroft-Gault) 50.7 Glucose Level 229mg/dL (70-99) Calcium Level 9.3mg/dL (8.5-10.1) Phosphorus Level 3.0mg/dL (2.6-4.7) Magnesium Level 1.3mg/dL (1.8-2.4) Creatine Kinase 69U/L (26-192) Albumin 2.8g/dL (3.4-5.0) Glucose (Fingerstick) 212mg/dL (70-99) 232mg/dL (70-99) Laboratory Tests Test 09/17/16 17:43 09/17/16 21:06 09/18/16 04:25 09/18/16 08:04 Glucose (Fingerstick) 209mg/dL (70-99) 244mg/dL (70-99) 212mg/dL (70-99) White Blood Count 9.8x10^3/uL (4.0-11.0) Red Blood Count 4.90x10^6/uL (3.50-5.40) Hemoglobin 11.4g/dL (12.0-15.5) Hematocrit 36.6% (36.0-47.0) Mean Corpuscular Volume 75fL (79-100) Mean Corpuscular Hemoglobin 23pg (25-35) Mean Corpuscular Hemoglobin Concent 31g/dL (31-37) Red Cell Distribution Width 19.8% (11.5-14.5) Platelet Count 328x10^3/uL (140-400) Neutrophils (%) (Auto) 93% (31-73) Lymphocytes (%) (Auto) 4% (24-48) Monocytes (%) (Auto) 3% (0-9) Eosinophils (%) (Auto) 0% (0-3) Basophils (%) (Auto) 0% (0-3) Neutrophils # (Auto) 9.1x10^3uL (1.8-7.7) Lymphocytes # (Auto) 0.4x10^3/uL (1.0-4.8) Monocytes # (Auto) 0.3x10^3/uL (0.0-1.1) Eosinophils # (Auto) 0.0x10^3/uL (0.0-0.7) Basophils # (Auto) 0.0x10^3/uL (0.0-0.2) Reticulocyte Count (auto) 2.1% (0.5-2.5) Sodium Level 139mmol/L (136-145) Potassium Level 4.4mmol/L (3.5-5.1) Chloride Level 99mmol/L (98-107) Carbon Dioxide Level 37mmol/L (21-32) Anion Gap 3 (6-14) Blood Urea Nitrogen 32mg/dL (7-20) Creatinine 1.1mg/dL (0.6-1.0) Estimated GFR (Cockcroft-Gault) 50.7 Glucose Level 229mg/dL (70-99) Calcium Level 9.3mg/dL (8.5-10.1) Phosphorus Level 3.0mg/dL (2.6-4.7) Magnesium Level 1.3mg/dL (1.8-2.4) Creatine Kinase 69U/L (26-192) Albumin 2.8g/dL (3.4-5.0) Test 09/18/16 11:37 Glucose (Fingerstick) 232mg/dL (70-99) Medications Active Scripts Medications Dose Route/Sig Days Date Category Dose Instructions Paroxetine Hcl 30 Mg Tablet 1 Tab PO DAILY 02/24/16 Reported Tramadol Hcl 50 Mg Tablet 50 Mg PO Q6H PRN 07/07/15 Rx Levaquin (Levofloxacin) 500 Mg Tablet 500 Tab PO DAILY 7 07/07/15 Rx Lisinopril 5 Mg Tablet 5 Mg PO DAILY 07/07/15 Rx Morphine Sulfate Er (Morphine Sulfate) 15 Mg Tablet.er 15 Mg PO BID 07/07/15 Rx Hydrocodone-Apap 5-325 (Hydrocodone Bit/Acetaminophen) 1 Each Tablet 1 Tab PO PRN Q6HRS PRN 07/07/15 Rx FENTANYL 25mcg/hr (Fentanyl) 1 Each Patch.td72 1 Patch TD Q3DAYS 07/07/15 Rx Budesonide 0.5 Mg/2 Ml Ampul.neb 0.5 Mg IH BID 07/03/15 Reported Duoneb 0.5-3(2.5) Mg/3 Ml (Albuterol/Ipratropium) 3 Ml Ampul.neb 3 Ml IH QID 07/03/15 Reported Humalog (Insulin Lispro) 100 Unit/1 Ml Insuln.pen Units SQ TIDAC 07/03/15 Reported >150-200 = 7 UNITS 201-250 = 10 UNITS 251-300 = 12 UNITS 301-350 = 15 UNITS >350 = 20 UNITS Levemir (Insulin Detemir) 100 Unit/1 Ml Vial 50 Unit SQ BID 10/28/14 Reported Lyrica (Pregabalin) 75 Mg Capsule 75 Mg PO TID 10/28/14 Reported Lisinopril 10 Mg Tablet 10 Mg PO DAILY 10/28/14 Reported Atorvastatin Calcium 40 Mg Tablet 40 Mg PO HS 10/28/14 Reported Spiriva (Tiotropium [place]) 18 Mcg Cap.w.dev 1 Cap IH DAILY 10/28/14 Reported Ambien (Zolpidem Tartrate) 10 Mg Tablet 10 Mg PO HS PRN 10/28/14 Reported Fluoxetine Hcl 20 Mg Capsule 60 Cap PO DAILY 10/28/14 Reported Pantoprazole Sodium 40 Mg Tablet.dr 40 Mg PO DAILY 10/28/14 Reported Furosemide 20 Mg Tablet 20 Mg PO DAILY 10/28/14 Reported Tizanidine Hcl 4 Mg Tablet 1 Tab PO TID 10/28/14 Reported Januvia (Sitagliptin Phosphate) 100 Mg Tablet 100 Mg PO DAILY 10/28/14 Reported Singulair Tablet (Montelukast Sodium) 10 Mg Tablet 10 Mg PO HS 10/28/14 Reported Promethazine Hcl 25 Mg Tablet 25 Mg PO Q6H PRN 10/28/14 Reported Proair Hfa Inhaler (Albuterol Sulfate) 8.5 Gm Hfa.aer.ad 2 Puff IH PRN Q4-6HRS 10/28/14 Reported Diltiazem 24HR Cd (Diltiazem Hcl) 180 Mg Cap.er.24h 180 Mg PO DAILY 10/28/14 Reported Impression . 1. Acute on chronic hypercapnic respiratory failure, most likely contributed by multiple narcotics and possible acute on chronic cor pulmonale. Cannot exclude bronchitis. She takes hydrocodone, morphine and Duragesic patch at home. 2. History of chronic obstructive pulmonary disease with mild exacerbation. 3. History of obesity, hypoventilation syndrome and possible obstructive sleep apnea. 4. History of chronic respiratory failure on 2.5 liters at home. Plan . 1. Nasal canula 2. wants home narcotics 3. Bronchodilators. 4. steroids with taper. 5. Follow renal function. 6. P.r.n. diuresis 7. Discussed with RN / home in [place] Lindsay MD Sep 18, 2016 12:51
[2016-09-18 13:31] LABS: % SAT IRON 9 % (15-34); IRON,SERUM 36 ug/dL (50-170)
[2016-09-18 14:31] VITALS: BP 129/68
[2016-09-18 19:59] VITALS: BP 145/70
[2016-09-18] MEDS: MONTELUKAST SODIUM 10 MG TABLET. PO SCH (20:51)
[2016-09-18] MEDS: ZOLPIDEM 5 MG TABLET. PO PRN (20:52)
[2016-09-18 23:35] VITALS: BP 153/64
[2016-09-19] MEDS: ACETAMINOPHEN 325 MG TABLET. PO PRN ×2 (01:51→09:09)
[2016-09-19 03:45] VITALS: BP 153/74
[2016-09-19] MEDS ORDERED: methylPREDNISolone SOD SUCC PF 40 MG/ML VIAL. IV SCH (06:00)
[2016-09-19 07:17] LABS: ALBUMIN 2.8 g/dL (3.4-5.0); CALCIUM 9.1 mg/dL (8.5-10.1); GFR 56.6; PHOSPHORUS 3.1 mg/dL (2.6-4.7); POTASSIUM 3.8 mmol/L (3.5-5.1)
[2016-09-19 07:19] LABS: MAGNESIUM 1.5 mg/dL (1.8-2.4)
[2016-09-19 07:30] VITALS: BP 159/68
[2016-09-19] MEDS: INSULIN ASPART 300 UNITS/3 ML INSULN.PEN SQ SCH ×2 (07:30→12:39)
[2016-09-19 07:32] LABS: BASO % 0 % (0-3); EOS % 1 % (0-3); HEMATOCRIT 37.8 % (36.0-47.0); HEMOGLOBIN 11.4 g/dL (12.0-15.5); LYMPH # 1.8 x10^3/uL (1.0-4.8); LYMPH % 17 % (24-48); MEAN CORPUSCULAR HEMOGLOBIN 23 pg (25-35); MEAN CORPUSCULAR HGB CONC 30 g/dL (31-37); MEAN CORPUSCULAR VOLUME 76 fL (79-100); MONO % 8 % (0-9); NEUT % 74 % (31-73); PLATELET COUNT 289 x10^3/uL (140-400); RED BLOOD COUNT 4.99 x10^6/uL (3.50-5.40); RED CELL DISTRIBUTION WIDTH 19.1 % (11.5-14.5); WHITE BLOOD COUNT 10.6 x10^3/uL (4.0-11.0)
[2016-09-19 07:32] LABS: PTH INTACT 95 pg/mL (15-65)
[2016-09-19] MEDS: IPRATRPIUM/ALBUTEROL 0.5/2.5MG 3 ML NEBU. NEB SCH ×2 (07:41→11:15)
[2016-09-19] MEDS: PANTOPRAZOLE 40 MG TABLET. PO SCH (08:28)
[2016-09-19] MEDS: PRIMIDONE 50 MG TABLET PO SCH (08:28)
[2016-09-19] MEDS: LINAGLIPTIN 5 MG TABLET PO SCH (08:31)
[2016-09-19] MEDS: FERROUS SULFATE ORAL 300 MG/5 ML SOLUTION. PO SCH (08:31)
[2016-09-19] MEDS: CARVEDILOL 12.5 MG TABLET PO SCH ×2 (08:31→12:34)
[2016-09-19] MEDS: MAGNESIUM CHLORIDE ER 64 MG TABLET.ER PO SCH ×2 (08:31)
[2016-09-19] MEDS: FUROSEMIDE 80 MG TABLET PO SCH (08:31)
[2016-09-19] MEDS: DILTIAZEM HCL 180 MG CAP.ER.24H PO SCH (08:31)
[2016-09-19] MEDS: HYDROCHLOROTHIAZIDE 12.5 MG CAPSULE. PO SCH (08:32)
[2016-09-19] MEDS: POTASSIUM CHLORIDE 20 MEQ TABLET.ER. PO SCH ×2 (08:32→12:33)
[2016-09-19] MEDS: LISINOPRIL 40 MG TABLET. PO SCH (08:32)
[2016-09-19] MEDS: MORPHINE ER 15 MG TABLET.ER PO SCH (09:10)
[2016-09-19] MEDS ORDERED: MAGNESIUM SULFATE 1GM 100 ML IV ONE (10:30)
[2016-09-19] MEDS ORDERED: MAGNESIUM SULFATE 2GM 50 ML IV ONE (10:30)
[2016-09-19 11:27] VITALS: BP 161/71
--- NOTE | 2016-09-19 11:37 | PDOC ---
PULMONARY PROGRESS NOTES Subjective feels better does not tolerate BIPAP wants to go home Vitals Vital Signs Date Time Temp Pulse Resp B/P Pulse Ox O2 Delivery O2 Flow Rate FiO2 09/19/16 11:15 Nasal Cannula 3.0 09/19/16 09:10 20 09/19/16 08:32 68 159/68 09/19/16 07:41 97 09/19/16 07:30 98.3 98.3 General: Alert, No acute distress Lungs: Other (decrease bs) Cardiovascular: S1, S2 Abdomen: Soft, Non-tender Neuro Exam: Alert Extremities: No Edema Labs Laboratory Tests Test 09/17/16 12:36 09/17/16 17:43 09/17/16 21:06 09/18/16 04:25 Glucose (Fingerstick) 211mg/dL (70-99) 209mg/dL (70-99) 244mg/dL (70-99) White Blood Count 9.8x10^3/uL (4.0-11.0) Red Blood Count 4.90x10^6/uL (3.50-5.40) Hemoglobin 11.4g/dL (12.0-15.5) Hematocrit 36.6% (36.0-47.0) Mean Corpuscular Volume 75fL (79-100) Mean Corpuscular Hemoglobin 23pg (25-35) Mean Corpuscular Hemoglobin Concent 31g/dL (31-37) Red Cell Distribution Width 19.8% (11.5-14.5) Platelet Count 328x10^3/uL (140-400) Neutrophils (%) (Auto) 93% (31-73) Lymphocytes (%) (Auto) 4% (24-48) Monocytes (%) (Auto) 3% (0-9) Eosinophils (%) (Auto) 0% (0-3) Basophils (%) (Auto) 0% (0-3) Neutrophils # (Auto) 9.1x10^3uL (1.8-7.7) Lymphocytes # (Auto) 0.4x10^3/uL (1.0-4.8) Monocytes # (Auto) 0.3x10^3/uL (0.0-1.1) Eosinophils # (Auto) 0.0x10^3/uL (0.0-0.7) Basophils # (Auto) 0.0x10^3/uL (0.0-0.2) Reticulocyte Count (auto) 2.1% (0.5-2.5) Sodium Level 139mmol/L (136-145) Potassium Level 4.4mmol/L (3.5-5.1) Chloride Level 99mmol/L (98-107) Carbon Dioxide Level 37mmol/L (21-32) Anion Gap 3 (6-14) Blood Urea Nitrogen 32mg/dL (7-20) Creatinine 1.1mg/dL (0.6-1.0) Estimated GFR (Cockcroft-Gault) 50.7 Glucose Level 229mg/dL (70-99) Calcium Level 9.3mg/dL (8.5-10.1) Phosphorus Level 3.0mg/dL (2.6-4.7) Magnesium Level 1.3mg/dL (1.8-2.4) Creatine Kinase 69U/L (26-192) Albumin 2.8g/dL (3.4-5.0) Test 09/18/16 04:55 09/18/16 08:04 09/18/16 11:37 09/18/16 17:00 Iron Level 36ug/dL (50-170) Total Iron Binding Capacity 384ug/dL (250-450) Iron Saturation 9% (15-34) Ferritin 28ng/mL (8-252) Glucose (Fingerstick) 212mg/dL (70-99) 232mg/dL (70-99) 244mg/dL (70-99) Test 09/18/16 20:39 09/19/16 06:35 09/19/16 08:05 Glucose (Fingerstick) 243mg/dL (70-99) 149mg/dL (70-99) White Blood Count 10.6x10^3/uL (4.0-11.0) Red Blood Count 4.99x10^6/uL (3.50-5.40) Hemoglobin 11.4g/dL (12.0-15.5) Hematocrit 37.8% (36.0-47.0) Mean Corpuscular Volume 76fL (79-100) Mean Corpuscular Hemoglobin 23pg (25-35) Mean Corpuscular Hemoglobin Concent 30g/dL (31-37) Red Cell Distribution Width 19.1% (11.5-14.5) Platelet Count 289x10^3/uL (140-400) Neutrophils (%) (Auto) 74% (31-73) Lymphocytes (%) (Auto) 17% (24-48) Monocytes (%) (Auto) 8% (0-9) Eosinophils (%) (Auto) 1% (0-3) Basophils (%) (Auto) 0% (0-3) Neutrophils # (Auto) 7.9x10^3uL (1.8-7.7) Lymphocytes # (Auto) 1.8x10^3/uL (1.0-4.8) Monocytes # (Auto) 0.8x10^3/uL (0.0-1.1) Eosinophils # (Auto) 0.1x10^3/uL (0.0-0.7) Basophils # (Auto) 0.0x10^3/uL (0.0-0.2) Sodium Level 142mmol/L (136-145) Potassium Level 3.8mmol/L (3.5-5.1) Chloride Level 99mmol/L (98-107) Carbon Dioxide Level 39mmol/L (21-32) Anion Gap 4 (6-14) Blood Urea Nitrogen 29mg/dL (7-20) Creatinine 1.0mg/dL (0.6-1.0) Estimated GFR (Cockcroft-Gault) 56.6 Glucose Level 164mg/dL (70-99) Calcium Level 9.1mg/dL (8.5-10.1) Phosphorus Level 3.1mg/dL (2.6-4.7) Magnesium Level 1.5mg/dL (1.8-2.4) Creatine Kinase 27U/L (26-192) Albumin 2.8g/dL (3.4-5.0) Laboratory Tests Test 09/18/16 11:37 09/18/16 17:00 09/18/16 20:39 09/19/16 06:35 Glucose (Fingerstick) 232mg/dL (70-99) 244mg/dL (70-99) 243mg/dL (70-99) White Blood Count 10.6x10^3/uL (4.0-11.0) Red Blood Count 4.99x10^6/uL (3.50-5.40) Hemoglobin 11.4g/dL (12.0-15.5) Hematocrit 37.8% (36.0-47.0) Mean Corpuscular Volume 76fL (79-100) Mean Corpuscular Hemoglobin 23pg (25-35) Mean Corpuscular Hemoglobin Concent 30g/dL (31-37) Red Cell Distribution Width 19.1% (11.5-14.5) Platelet Count 289x10^3/uL (140-400) Neutrophils (%) (Auto) 74% (31-73) Lymphocytes (%) (Auto) 17% (24-48) Monocytes (%) (Auto) 8% (0-9) Eosinophils (%) (Auto) 1% (0-3) Basophils (%) (Auto) 0% (0-3) Neutrophils # (Auto) 7.9x10^3uL (1.8-7.7) Lymphocytes # (Auto) 1.8x10^3/uL (1.0-4.8) Monocytes # (Auto) 0.8x10^3/uL (0.0-1.1) Eosinophils # (Auto) 0.1x10^3/uL (0.0-0.7) Basophils # (Auto) 0.0x10^3/uL (0.0-0.2) Sodium Level 142mmol/L (136-145) Potassium Level 3.8mmol/L (3.5-5.1) Chloride Level 99mmol/L (98-107) Carbon Dioxide Level 39mmol/L (21-32) Anion Gap 4 (6-14) Blood Urea Nitrogen 29mg/dL (7-20) Creatinine 1.0mg/dL (0.6-1.0) Estimated GFR (Cockcroft-Gault) 56.6 Glucose Level 164mg/dL (70-99) Calcium Level 9.1mg/dL (8.5-10.1) Phosphorus Level 3.1mg/dL (2.6-4.7) Magnesium Level 1.5mg/dL (1.8-2.4) Creatine Kinase 27U/L (26-192) Albumin 2.8g/dL (3.4-5.0) Test 2/24/17 08:05 Glucose (Fingerstick) 149mg/dL (70-99) Medications Active Scripts Medications Dose Route/Sig Days Date Category Dose Instructions Paroxetine Hcl 30 Mg Tablet 1 Tab PO DAILY 02/24/16 Reported Tramadol Hcl 50 Mg Tablet 50 Mg PO Q6H PRN 07/07/15 Rx Levaquin (Levofloxacin) 500 Mg Tablet 500 Tab PO DAILY 7 07/07/15 Rx Lisinopril 5 Mg Tablet 5 Mg PO DAILY 07/07/15 Rx Morphine Sulfate Er (Morphine Sulfate) 15 Mg Tablet.er 15 Mg PO BID 07/07/15 Rx Hydrocodone-Apap 5-325 (Hydrocodone Bit/Acetaminophen) 1 Each Tablet 1 Tab PO PRN Q6HRS PRN 07/07/15 Rx FENTANYL 25mcg/hr (Fentanyl) 1 Each Patch.td72 1 Patch TD Q3DAYS 07/07/15 Rx Budesonide 0.5 Mg/2 Ml Ampul.neb 0.5 Mg IH BID 07/03/15 Reported Duoneb 0.5-3(2.5) Mg/3 Ml (Albuterol/Ipratropium) 3 Ml Ampul.neb 3 Ml IH QID 07/03/15 Reported Humalog (Insulin Lispro) 100 Unit/1 Ml Insuln.pen Units SQ TIDAC 07/03/15 Reported >150-200 = 7 UNITS 201-250 = 10 UNITS 251-300 = 12 UNITS 301-350 = 15 UNITS >350 = 20 UNITS Levemir (Insulin Detemir) 100 Unit/1 Ml Vial 50 Unit SQ BID 10/28/14 Reported Lyrica (Pregabalin) 75 Mg Capsule 75 Mg PO TID 10/28/14 Reported Lisinopril 10 Mg Tablet 10 Mg PO DAILY 10/28/14 Reported Atorvastatin Calcium 40 Mg Tablet 40 Mg PO HS 10/28/14 Reported Spiriva (Tiotropium [place]) 18 Mcg Cap.w.dev 1 Cap IH DAILY 10/28/14 Reported Ambien (Zolpidem Tartrate) 10 Mg Tablet 10 Mg PO HS PRN 10/28/14 Reported Fluoxetine Hcl 20 Mg Capsule 60 Cap PO DAILY 10/28/14 Reported Pantoprazole Sodium 40 Mg Tablet.dr 40 Mg PO DAILY 10/28/14 Reported Furosemide 20 Mg Tablet 20 Mg PO DAILY 10/28/14 Reported Tizanidine Hcl 4 Mg Tablet 1 Tab PO TID 10/28/14 Reported Januvia (Sitagliptin Phosphate) 100 Mg Tablet 100 Mg PO DAILY 10/28/14 Reported Singulair Tablet (Montelukast Sodium) 10 Mg Tablet 10 Mg PO HS 10/28/14 Reported Promethazine Hcl 25 Mg Tablet 25 Mg PO Q6H PRN 10/28/14 Reported Proair Hfa Inhaler (Albuterol Sulfate) 8.5 Gm Hfa.aer.ad 2 Puff IH PRN Q4-6HRS 10/28/14 Reported Diltiazem 24HR Cd (Diltiazem Hcl) 180 Mg Cap.er.24h 180 Mg PO DAILY 10/28/14 Reported Impression . 1. Acute on chronic hypercapnic respiratory failure, most likely contributed by multiple narcotics and possible acute on chronic cor pulmonale. Cannot exclude bronchitis. She takes hydrocodone, morphine and Duragesic patch at home. 2. History of chronic obstructive pulmonary disease with mild exacerbation. 3. History of obesity, hypoventilation syndrome and possible obstructive sleep apnea. 4. History of chronic respiratory failure on 2.5 liters at home. Plan . 1. Nasal canula 2. wants home narcotics 3. Bronchodilators. 4. steroids with taper. 5. Follow renal function. 6. P.r.n. diuresis 7. Discussed with RN / home today RAMBO RODRIGUEZ MD Sep 19, 2016 11:37
[2016-09-19 12:34] VITALS: BP 161/71
--- NOTE | 2016-09-20 07:43 | DS ---
DATE OF DISCHARGE: 09/19/2016 DISCHARGE DIAGNOSES: 1. Encephalopathy, present on admission, due to hypercapnic and hypoxic respiratory failure. 2. ____ acute kidney injury, prerenal, improved. 3. Leukocytosis, likely reactive. 4. Electrolyte imbalance, hyperkalemia, resolved. 5. Diabetes mellitus with hyperglycemia. 6. History of congestive heart failure. BRIEF HOSPITAL COURSE: This 60-year-old female patient admitted to the hospital for altered mental status, initially did show hypercapnic respiratory failure, suspected due to noncompliance with medications. She was placed in the Critical Care Unit and patient was placed on BiPAP. Her ABGs improved with BiPAP and also she had multiple electrolyte imbalances such as hyperkalemia. She received some Kayexalate. Also the patient had some BLAIR, which could be prerenal in nature, which has been resolved. During the hospitalization, she was evaluated by Dr. Dawson and ____, who agreed with current management and stable discharge. The patient has enough oxygen at home. She has chronic respiratory failure. DISCHARGE EXAMINATION: GENERAL: Alert, oriented x 3. HEART: S1, S2 present. LUNGS AND CHEST: Clear. ABDOMEN: Soft, nontender, no organomegaly. EXTREMITIES: No edema. DISCHARGE DISPOSITION: Home. DISCHARGE MEDICATIONS: New medications: Prednisone taper. The patient need to stop drinking as she is on the high doses. I recommend her to talk to the physician at the primary care clinic and ____ insulin. At this time, I recommend her only sliding scale insulin. Total time spent for discharge 35 minutes for patient education, counseling, and coordination of care. JACKIE CHAMBERLAIN MD DR: CHON/brittney JOB#: [id number] / [id number]
== END 2016-09-19 16:00 | disposition home or self-care (01) | DRG 682 ==
LOC: 1 WEST ICU 09-16 01:16 → 2 SOUTH 09-17 20:39
PROVIDERS: ADMIT Internal Medicine; ATTEND Internal Medicine
PROC: 5A09357 Assistance with Respiratory Ventilation, Less than 24 Consecutive Hours, Continuous Positive Airway Pressure (ICD-10-PCS; principal; 2016-09-16)
DX: N17.0 Acute kidney failure with tubular necrosis (principal); G93.40 Encephalopathy, unspecified; J96.21 Acute and chronic respiratory failure with hypoxia; J96.22 Acute and chronic respiratory failure with hypercapnia; E87.2 Acidosis; I13.0 Hypertensive heart and chronic kidney disease with heart failure and stage 1 through stage 4 chronic kidney disease, or unspecified chronic kidney disease; E66.2 Morbid (severe) obesity with alveolar hypoventilation; J44.1 Chronic obstructive pulmonary disease with (acute) exacerbation; Z68.42 Body mass index [BMI] 45.0-49.9, adult; D72.829 Elevated white blood cell count, unspecified; E11.22 Type 2 diabetes mellitus with diabetic chronic kidney disease; E11.65 Type 2 diabetes mellitus with hyperglycemia; E87.5 Hyperkalemia; D64.9 Anemia, unspecified; E83.42 Hypomagnesemia; F17.210 Nicotine dependence, cigarettes, uncomplicated; I50.9 Heart failure, unspecified; N18.9 Chronic kidney disease, unspecified; Z79.891 Long term (current) use of opiate analgesic; Z99.81 Dependence on supplemental oxygen; Z88.6 Allergy status to analgesic agent
CPT/HCPCS: 36415; 36600; 71010; 76770; 80048; 80069; 82140; 82306; 82550; 82728; 82805; 82947; 83540; 83550; 83735; 83970; 84100; 85007; 85027; 85045; 87641; 94640; 94660; J0360; J1815; J2405; J2920; J3475; J7050; J7060; J7512; J7620; J7030